=== PATIENT | female | born 1960 | race Caucasian/White ===

== ENCOUNTER 2016-07-21 20:08 | Inpatient (IN) | payer OTHER ==
[2016-07-21 20:58] VITALS: BMI 38.0
--- NOTE | 2016-07-21 21:25 | HP ---
COWS - Scale Resting Pulse: 0= VT 80 or Below Sweatin=Flushed/Facial Moisture Restless Observation: 5= Unable to Sit Still Pupil Size: 1= Pupils >than Normal Bone or Joint Aches: 4=Acute Joint/Muscle Pain Runny Nose/ Eye Tearin= Runny Nose/Eyes GI Upset > 30mins: 0= None Tremor Observation: 2= Slight Tremor Visible Yawning Observation: 1= 1-2x During Session Anxiety or Irritability: 2=Irritable/Anxious Goose Flesh Skin: 0=Smooth Skin COWS Score: 19 Admission ROS S - HPI Chief Complaint: C/O WITHDRAWALS SX'S. SEEKING DETOX TXMENT. Allergies/Adverse Reactions: Allergies Allergy/AdvReac Type Severity Reaction Status Date / Time No Known Allergies Allergy Verified 07/21/16 20:58 History of Present Illness: 56 Y.O. MALE WITH OPIOID DEPENDENCE HERE ADMITTED FOR DETOX TXMENT. THIS IS CLIENTS FIRST TIME IN DETOX. WAS SEEN IN [facility] ED TODAY FOR SOB AND DIFFICULTY BREATHING. S/P CXR AND FLU SWAP DC WITH DX OF RSV BRONCHITIS AND SUPPORTIVE CARE. DC PAPERS REVIEWED. CLIENT STATES FEEL BETTER C/O CONGESTION. Exam Limitations: No Limitations - Ebola screening Have you traveled outside of the country in the last 21 days: No Have you had contact with anyone from an Ebola affected area: No Have you been sick,other than usual withdrawal symptoms: No Do you have a fever: No - Review of Systems Constitutional: Chills, Diaphoresis, Loss of Appetite, Malaise, Night Sweats EENT: reports: Nose Congestion Respiratory: reports: Cough, Shortness of Breath Cardiac: reports: No Symptoms Reported GI: reports: Poor Appetite : reports: No Symptoms Reported Musculoskeletal: reports: Joint Pain (TENDONITIS OF BOTH HANDS R>L) Integumentary: reports: No Symptoms Reported Neuro: reports: No Symptoms reported Endocrine: reports: No Symptoms Reported Hematology: reports: No Symptoms Reported Psychiatric: reports: Anxious Other Systems: Reviewed and Negative Patient History - Patient Medical History Hx Anemia: No Hx Asthma: No Hx Chronic Obstructive Pulmonary Disease (COPD): No Hx Cancer: No Hx Cardiac Disorders: No Hx Congestive Heart Failure: No Hx Hypertension: No Hx Hypercholesterolemia: No Hx Pacemaker: No HX Cerebrovascular Accident: No Hx Seizures: No Hx Dementia: No Hx Diabetes: No Hx Gastrointestinal Disorders: No Hx Liver Disease: No Hx Genitourinary Disorders: No Hx Sexually Transmitted Disorders: No Hx Renal Disease (ESRD): No Hx Thyroid Disease: Yes (HYPOTHYROIDISM) Hx Human Immunodeficiency Virus (HIV): No Hx Hepatitis C: No Hx Depression: No Hx Suicide Attempt: No Hx Bipolar Disorder: No Hx Schizophrenia: No - Patient Surgical History Past Surgical History: Yes Hx Neurologic Surgery: No Hx Cataract Extraction: No Hx Cardiac Surgery: No Hx Lung Surgery: No Hx Breast Surgery: No Hx Breast Biopsy: No Hx Abdominal Surgery: No Hx Appendectomy: No Hx Cholecystectomy: No Hx Genitourinary Surgery: No Hx Section: No Hx Orthopedic Surgery: No Other Surgical History: thyroidectomy Anesthesia Reaction: No - PPD History Previous Implant?: Yes Documented Results: Negative w/o proof Implanted On Prior R Admission?: No PPD to be Administered?: Yes - Reproductive History Patient : No - Smoking Cessation Smoking history: Current every day smoker Have you smoked in the past 12 months: Yes Aproximately how many cigarettes per day: 20 Cigars Per Day: 0 Hx Chewing Tobacco Use: No Initiated information on smoking cessation: Yes 'Breaking Loose' booklet given: 07/21/16 - Substance & Tx. History Hx Alcohol Use: No Hx Substance Use: Yes Substance Use Type: Opiates (OPANA) Hx Substance Use Treatment: No - Substances Abused OPANA Route: Oral Frequency: Daily Amount used: 30mg Age of first use: 54 Date of Last Use: 07/21/16 Family Disease History - Family Disease History Family Disease History: Heart Disease: Father (CHF), CA: Mother (LUNG CA), Other : Father, Mother, Brother (DRUG/ ALCOHOL ABUSE) Admission Physical Exam S - Vital Signs Vital Signs: Vital Signs - 24 hr 07/21/16 20:54 Temperature 96.6 F L Pulse Rate 69 Respiratory 22 Rate Blood Pressure 121/70 - Physical General Appearance: Yes: Appropriately Dressed, Tremorous, Sweating, Anxious HEENTM: Yes: EOMI, Normocephalic, Normal Voice, ANANT, Pharynx Normal, Nasal Congestion Respiratory: Yes: Chest Non-Tender, No Respiratory Distress, Wheezing, Other ( COARSE BREATRH SOUNDS) Neck: Yes: No masses,lesions,Nodules, Supple, Trachea in good position Breast: Yes: Breast Exam Deferred Cardiology: Yes: Regular Rhythm, Regular Rate, S1, S2 Abdominal: Yes: Non Tender, Soft, Other (OBESE) Genitourinary: Yes: Within Normal Limits Back: Yes: Normal Inspection Musculoskeletal: Yes: full range of Motion, Gait Steady Extremities: Yes: Normal Range of Motion, Non-Tender, Tremors Neurological: Yes: manager rehab II-XII NML intact, Fully Oriented, Alert, Motor Strength 5/5 Integumentary: Yes: Normal Color, Warm, Moist Lymphatic: Yes: Within Normal Limits - Diagnostic (1) Uncomplicated opioid dependence Current Visit: Yes Status: Chronic (2) Nicotine dependence Current Visit: Yes Status: Chronic Qualifiers: Nicotine product type: cigarettes Substance use status: uncomplicated Qualified Code(s): F17.210 - Nicotine dependence, cigarettes, uncomplicated (3) Hypothyroidism Current Visit: Yes Status: Chronic (4) Bronchitis Current Visit: Yes Status: Acute Cleared for Admission [facility] - Detox or Rehab [facility] Level of Care: Medically Managed Detox Regimen/Protocol: Methadone [facility] Breath Alcohol Content Breath Alcohol Content: 0 Urine Pregancy Test - Result Urine Test Results: Negative- NO Line Present Urine Drug Screen - Results Drug Screen Negative: No Urine Drug Screen Results: AMP-Amphetamines, MTD-Methadone, TCA-Tricyclic Antidepress, OXY-Oxycodone
[2016-07-21] MEDS ORDERED: hydrOXYzine PAMOATE 50 MG CAPSULE (FP) PO PRN (21:37)
[2016-07-21] MEDS ORDERED: METHADONE HCL 10 MG TABLET (FOR DETOX USE ONLY) PO ONE ×2 (21:37→23:00)
[2016-07-21] MEDS ORDERED: MAGNESIUM CITRATE 300 ML BOTTLE PO PRN (21:37)
[2016-07-21] MEDS ORDERED: MENTHOL/PHENOL 1 EACH UD MM PRN (21:37)
[2016-07-21] MEDS ORDERED: LOPERAMIDE HCL 2 MG CAPSULE PO PRN (21:37)
[2016-07-21] MEDS ORDERED: MAG HYDROX/AL HYDROX/SIMETH 30 ML UNIT-DOSE CUP PO PRN (21:37)
[2016-07-21] MEDS ORDERED: diphenhydrAMINE HCL 50 MG CAPSULE PO PRN (21:37)
[2016-07-21] MEDS ORDERED: MAGNESIUM HYDROX 2400MG/30ML ORAL SUSPENSION 30 ML CUP PO PRN (21:37)
[2016-07-21] MEDS ORDERED: ACETAMINOPHEN 325 MG TABLET (FP) PO PRN (21:37)
[2016-07-21 22:54] LABS: URINE APPEARANCE CLEAR; URINE BILIRUBIN NEGATIVE (NEGATIVE); URINE BLOOD NEGATIVE (NEGATIVE); URINE COLOR YELLOW; URINE GLUCOSE (UA) NEGATIVE (NEGATIVE); URINE KETONE NEGATIVE (NEGATIVE); URINE LEUK ESTERASE NEGATIVE (NEGATIVE); URINE NITRITE NEGATIVE (NEGATIVE); URINE UROBILINOGEN NEGATIVE E.U./dl (0.2-1.0)
[2016-07-21 22:57] LABS: URINE PROTEIN 2+ (NEGATIVE)
[2016-07-21 22:58] LABS: URINE RBC 3 /hpf (0-3); URINE WBC 2 /hpf (3-5)
[2016-07-21 22:59] LABS: URINE HYALINE CAST 16 /lpf; URINE MUCUS MANY
[2016-07-21] MEDS: diazePAM 5 MG TABLET PO PRN (23:00)
[2016-07-21] MEDS: NICOTINE 21 MG/24 HOURS TOPICAL PATCH TD SCH (23:01)
[2016-07-21] MEDS: THIAMINE HCL 100 MG TABLET (FP) PO SCH (23:25)
[2016-07-22] MEDS ORDERED: LEVOTHYROXINE NA 125 MCG TABLET (FP) PO SCH (07:00)
[2016-07-22] MEDS ORDERED: METHADONE HCL 10 MG TABLET (FOR DETOX USE ONLY) PO ONE (10:00)
[2016-07-22] MEDS: PRENATAL VITAMINS W/ FOLIC ACID TABLET (FP) PO SCH (10:14)
[2016-07-22] MEDS: diazePAM 5 MG TABLET PO PRN ×2 (10:15→22:21)
[2016-07-22 10:16] LABS: MCH 30.5 pg (25.7-33.7); MCHC 33.8 g/dl (32.0-36.0); MEAN CELL VOLUME 90.2 fl (80-96); MEAN PLT VOLUME 8.2 fl (7.5-11.1); PLATELET COUNT 189 K/MM3 (134-434); RDW 13.8 % (11.6-15.6); WHITE BLOOD COUNT 5.5 K/mm3 (4.0-10.0)
[2016-07-22] MEDS: NICOTINE POLACRILEX 2 MG GUM BC PRN ×3 (10:17→22:33)
[2016-07-22 10:33] LABS: ALBUMIN 3.5 g/dl (3.4-5.0); ALK PHOS 68 U/L (45-117); ANION GAP 10 (8-16); BILIRUBIN,TOTAL 0.3 mg/dL (0.2-1.0); CALCIUM 8.1 mg/dL (8.5-10.1); CO2 25 mmol/L (21-32); CREATININE 0.8 mg/dL (0.55-1.02); GLUCOSE,RANDOM 98 mg/dL (74-106); SGOT/AST 22 U/L (15-37); SGPT/ALT 34 U/L (12-78); TOT PROT 7.2 g/dl (6.4-8.2)
[2016-07-22] MEDS: NICOTINE 21 MG/24 HOURS TOPICAL PATCH TD SCH (11:06)
--- NOTE | 2016-07-22 12:17 | PN ---
BHS COWS - Scale Resting Pulse: 1= CT 81-100 Sweatin=Flushed/Facial Moisture Restless Observation: 1= Difficult to Sit Still Pupil Size: 0= Normal to Room Light Bone or Joint Aches: 2= Severe Diffuse Aches Runny Nose/ Eye Tearin= Runny Nose/Eyes GI Upset > 30mins: 1= Stomach Cramp Tremor Observation of Outstretched Hands: 2= Slight Tremor Visible Yawning Observation: 0= None Anxiety or Irritability: 2=Irritable/Anxious Goose Flesh Skin: 3=Piloerection COWS Score: 16 BHS Progress Note (SOAP) Subjective: Chills, Tremors, Body Aches, Headache, Productive cough, Nasal Congestion. Objective: PT. A & O X 3, OBSERVED AMBULATING ON UNIT. COARSE LUNG SOUND AUSCULTATED ON RIGHT LOWER LOBE. 07/22/16 12:13 Vital Signs Temperature 100.6 F H 07/22/16 09:51 Pulse Rate 94 H 07/22/16 09:51 Respiratory Rate 20 07/22/16 09:51 Blood Pressure 139/96 07/22/16 09:51 O2 Sat by Pulse Oximetry (%) Laboratory Last Values WBC 5.5 K/mm3 (4.0-10.0) 07/22/16 07:00 RBC 4.77 M/mm3 (3.60-5.2) 07/22/16 07:00 Hgb 14.5 GM/dL (10.7-15.3) 07/22/16 07:00 Hct 43.0 % (32.4-45.2) 07/22/16 07:00 MCV 90.2 fl (80-96) 07/22/16 07:00 MCHC 33.8 g/dl (32.0-36.0) 07/22/16 07:00 RDW 13.8 % (11.6-15.6) 07/22/16 07:00 Plt Count 189 K/MM3 (134-434) 07/22/16 07:00 MPV 8.2 fl (7.5-11.1) 07/22/16 07:00 Sodium 136 mmol/L (136-145) 07/22/16 07:00 Potassium 4.0 mmol/L (3.5-5.1) 07/22/16 07:00 Chloride 101 mmol/L (98-107) 07/22/16 07:00 Carbon Dioxide 25 mmol/L (21-32) 07/22/16 07:00 Anion Gap 10 (8-16) 07/22/16 07:00 BUN 18 mg/dL (7-18) 07/22/16 07:00 Creatinine 0.8 mg/dL (0.55-1.02) 07/22/16 07:00 Creat Clearance w eGFR > 60 (>60) 07/22/16 07:00 Random Glucose 98 mg/dL (74-106) 07/22/16 07:00 Calcium 8.1 mg/dL (8.5-10.1) L 07/22/16 07:00 Total Bilirubin 0.3 mg/dL (0.2-1.0) 07/22/16 07:00 AST 22 U/L (15-37) 07/22/16 07:00 ALT 34 U/L (12-78) 07/22/16 07:00 Alkaline Phosphatase 68 U/L (45-117) 07/22/16 07:00 Total Protein 7.2 g/dl (6.4-8.2) 07/22/16 07:00 Albumin 3.5 g/dl (3.4-5.0) 07/22/16 07:00 Urine Color Yellow 07/21/16 22:35 Urine Appearance Clear 07/21/16 22:35 Urine pH 5.0 (5.0-8.0) 07/21/16 22:35 Ur Specific [place] 1.023 (1.001-1.035) 07/21/16 22:35 Urine Protein 2+ (NEGATIVE) H 07/21/16 22:35 Urine Glucose (UA) Negative (NEGATIVE) 07/21/16 22:35 Urine Ketones Negative (NEGATIVE) 07/21/16 22:35 Urine Blood Negative (NEGATIVE) 07/21/16 22:35 Urine Nitrite Negative (NEGATIVE) 07/21/16 22:35 Urine Bilirubin Negative (NEGATIVE) 07/21/16 22:35 Urine Urobilinogen Negative E.U./dl (0.2-1.0) 07/21/16 22:35 Ur Leukocyte Esterase Negative (NEGATIVE) 07/21/16 22:35 Urine RBC 3 /hpf (0-3) 07/21/16 22:35 Urine WBC 2 /hpf (3-5) 07/21/16 22:35 Ur Epithelial Cells Rare /hpf (FEW) 07/21/16 22:35 Urine Crystals Rare /hpf (NONE SEEN) 07/21/16 22:35 Urine Casts 2 /hpf 07/21/16 22:35 Hyaline Casts 16 /lpf 07/21/16 22:35 Urine Mucus Many 07/21/16 22:35 RPR Titer Nonreactive (NONREACTIVE) 07/22/16 07:00 LABS NOTED. Assessment: 07/22/16 12:15 WITHDRAWAL SYMPTOMS. Plan: CONTINUE DETOX. PRN NEBULIZER TREATMENT FOR DOUGH / SOB PRN ACTIFED FOR NASAL CONGESTION. CONTINUE TO MONITOR COUGH AND VS.
[2016-07-22] MEDS: ALBUTEROL SO4 2.5/IPRATROPIUM 0.5 INH SOL 3 ML VIAL.NEB. NEB PRN ×2 (12:49→17:00)
[2016-07-22] MEDS: P-EPHED 60MG/TRIPROLIDI 2.5MG TABLET PO PRN (15:30)
[2016-07-22] MEDS: IBUPROFEN 400 MG TABLET (FP) PO PRN ×2 (15:30→22:21)
[2016-07-22] MEDS: guaiFENesin/D-METHORPHAN HB 10 ML UNIT-DOSE CUPS PO PRN (15:30)
--- NOTE | 2016-07-22 15:39 | EKG ---
Test Reason : Blood Pressure : / mmHG Vent. Rate : 065 BPM Atrial Rate : 065 BPM P-R Int : 152 ms QRS Dur : 096 ms QT Int : 428 ms P-R-T Axes : 058 014 083 degrees QTc Int : 445 ms NORMAL SINUS RHYTHM T WAVE ABNORMALITY, CONSIDER LATERAL ISCHEMIA ABNORMAL ECG NO PREVIOUS ECGS AVAILABLE Confirmed by JODI JOHNSON MD ([id number]) on 07/22/2016 3:39:07 PM Referred By: Confirmed By:JODI JOHNSON MD
--- NOTE | 2016-07-22 17:06 | PN ---
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 Pt seen at [facility]/Ed dx'ed with bronchitis but given no AB'S. Vital Signs Temperature 102.7 F H 07/22/16 15:45 Pulse Rate 84 07/22/16 15:45 Respiratory Rate 20 07/22/16 15:45 Blood Pressure 158/73 07/22/16 15:45 O2 Sat by Pulse Oximetry (%) 93% RA 07/22/16 16:45 f pt aox3 sitting up in bed with cough lungs + mild wheezes isma imp- bronchitis r/o PN plan - fluids tylenol duoneb prn bactrim ds 1 bid cxr in am repeat cbc monitor temp if increasing fever or sob inform medical provider
[2016-07-22] MEDS ORDERED: SULFAMETHOXAZOLE/TRIMETHOPRIM 800MG/160MG D.S. TABLET PO ONE (17:15)
[2016-07-22] MEDS: ALBUTEROL SO4 6.7 GM HFA INHALER IH PRN (22:20)
[2016-07-22] MEDS: THIAMINE HCL 100 MG TABLET (FP) PO SCH (22:22)
[2016-07-23] MEDS ORDERED: LEVOTHYROXINE NA 25 MCG TABLET (FP) PO SCH (05:24)
[2016-07-23] MEDS ORDERED: METHADONE HCL 5 MG TABLET (FOR DETOX USE ONLY) PO ONE (10:00)
[2016-07-23] MEDS ORDERED: SULFAMETHOXAZOLE/TRIMETHOPRIM 800MG/160MG D.S. TABLET PO SCH (10:00)
[2016-07-23 10:08] LABS: BASOPHIL 0.4 % (0-2.0); EOSINOPHIL 1.3 % (0-4.5); MCH 30.5 pg (25.7-33.7); MCHC 33.6 g/dl (32.0-36.0); MEAN CELL VOLUME 90.8 fl (80-96); MEAN PLT VOLUME 8.1 fl (7.5-11.1); NEUTROPHILS 68.6 % (42.8-82.8); PLATELET COUNT 177 K/MM3 (134-434); WHITE BLOOD COUNT 5.3 K/mm3 (4.0-10.0)
[2016-07-23] MEDS: PRENATAL VITAMINS W/ FOLIC ACID TABLET (FP) PO SCH (10:17)
[2016-07-23] MEDS: NICOTINE 21 MG/24 HOURS TOPICAL PATCH TD SCH (10:18)
--- NOTE | 2016-07-23 10:43 | PN ---
S COWS - Scale Resting Pulse: 0= [place] 80 or Below Sweatin=Flushed/Facial Moisture Restless Observation: 1= Difficult to Sit Still Pupil Size: 0= Normal to Room Light Bone or Joint Aches: 2= Severe Diffuse Aches Runny Nose/ Eye Tearin= Runny Nose/Eyes GI Upset > 30mins: 0= None Tremor Observation of Outstretched Hands: 2= Slight Tremor Visible Yawning Observation: 1= 1-2x During Session Anxiety or Irritability: 2=Irritable/Anxious Goose Flesh Skin: 0=Smooth Skin COWS Score: 12 S Progress Note (SOAP) Subjective: agitation sweats productive cough Objective: 07/23/16 10:40 Vital Signs Temperature 101.7 F H 07/23/16 10:12 Pulse Rate 80 07/23/16 10:12 Respiratory Rate 20 07/23/16 10:12 Blood Pressure 150/70 07/23/16 10:12 O2 Sat by Pulse Oximetry (%) Laboratory Tests 07/21/16 07/21/16 07/22/16 07:00 22:35 07:00 WBC 5.5 RBC 4.77 Hgb 14.5 Hct 43.0 MCV 90.2 MCHC 33.8 RDW 13.8 Plt Count 189 MPV 8.2 Neutrophils % Lymphocytes % Monocytes % Eosinophils % Basophils % Sodium Potassium Chloride Carbon Dioxide Anion Gap BUN Creatinine Creat Clearance w eGFR Random Glucose Calcium Total Bilirubin AST ALT Alkaline Phosphatase Total Protein Albumin Urine Color Yellow Urine Appearance Clear Urine pH 5.0 Ur Specific [place] 1.023 Urine Protein 2+ H Urine Glucose (UA) Negative Urine Ketones Negative Urine Blood Negative Urine Nitrite Negative Urine Bilirubin Negative Urine Urobilinogen Negative Ur Leukocyte Esterase Negative Urine RBC 3 Urine WBC 2 Ur Epithelial Cells Rare Urine Crystals Rare Urine Casts 2 Hyaline Casts 16 Urine Mucus Many RPR Titer Hepatitis C Antibody 0.1 07/22/16 07/22/16 07/23/16 07:00 07:00 07:30 WBC 5.3 RBC 4.61 Hgb 14.0 Hct 41.8 MCV 90.8 MCHC 33.6 RDW 14.0 Plt Count 177 MPV 8.1 Neutrophils % 68.6 Lymphocytes % 16.4 Monocytes % 13.3 H Eosinophils % 1.3 Basophils % 0.4 Sodium 136 Potassium 4.0 Chloride 101 Carbon Dioxide 25 Anion Gap 10 BUN 18 Creatinine 0.8 Creat Clearance w eGFR > 60 Random Glucose 98 Calcium 8.1 L Total Bilirubin 0.3 AST 22 ALT 34 Alkaline Phosphatase 68 Total Protein 7.2 Albumin 3.5 Urine Color Urine Appearance Urine pH Ur Specific [place] Urine Protein Urine Glucose (UA) Urine Ketones Urine Blood Urine Nitrite Urine Bilirubin Urine Urobilinogen Ur Leukocyte Esterase Urine RBC Urine WBC Ur Epithelial Cells Urine Crystals Urine Casts Hyaline Casts Urine Mucus RPR Titer Nonreactive Hepatitis C Antibody temp 101.7; continue antibiotic as ordered chest x-ray result pending awake/alert ambulating no acute distress Assessment: 07/23/16 10:41 withdrawal sx Plan: continue detox increase fluids chest x-ray result pending will send to [facility] if necessary continue bactrim as ordered
[2016-07-23] MEDS: ALBUTEROL SO4 2.5/IPRATROPIUM 0.5 INH SOL 3 ML VIAL.NEB. NEB PRN (11:36)
[2016-07-23] MEDS: guaiFENesin/D-METHORPHAN HB 10 ML UNIT-DOSE CUPS PO PRN (13:20)
[2016-07-23] MEDS: P-EPHED 60MG/TRIPROLIDI 2.5MG TABLET PO PRN (13:20)
[2016-07-23] MEDS: ALBUTEROL SO4 6.7 GM HFA INHALER IH PRN (13:21)
--- NOTE | 2016-07-23 14:03 | PN ---
S Progress Note Note: pt last BP 125/70 pulse 88 rr 16, temp earlier today 101.7 and now 99.9. pt continues to feel congestion, neb tx and bactrim chest x-ray states degenerative changes with wedges and need follow up. spoke with REBECCA Zapien for report to have pt evaluated.
[2016-07-23 15:26] VITALS: BP 125/71; PULSE 88; TEMP 99.9
--- NOTE | 2016-07-24 00:06 | DS ---
[facility] Detox Discharge Summary Admission Date: 07/21/16 Discharge Date: 07/23/16 - History Present History: Opioid Dependence Additional Comments: PT. WAS TRANSFERRED TO THE ER AT [facility] TO R/O PNEUMONIA. PT. LEFT ER AMA. - Physical Exam Results Vital Signs: Vital Signs Temperature 99.9 F H 07/23/16 15:25 Pulse Rate 88 07/23/16 15:25 Respiratory Rate 16 07/23/16 15:25 Blood Pressure 125/71 07/23/16 15:25 O2 Sat by Pulse Oximetry (%) - Medication Discharge Medications: Ambulatory Orders Levothyroxine [Synthroid -] 125 mcg PO DAILY 07/21/16 Albuterol 0.083% Nebulizer Mone [Ventolin 0.083% Nebulizer Soln -] 1 neb NEB Q4H PRN #20 vial 07/23/16 Albuterol Sulfate Inhaler - [Ventolin HFA Inhaler -] 1 - 2 inh PO Q4H PRN #1 inhaler 07/23/16 Azithromycin 250 mg PO DAILY #4 tablet 07/23/16 Prednisone [Deltasone] 60 mg PO DAILY #12 tablet 07/23/16 - AMA Did Patient Leave Against Medical Advice: Yes
[2016-07-24] MEDS ORDERED: METHADONE HCL 5 MG TABLET (FOR DETOX USE ONLY) PO ONE (10:00)
[2016-07-25] MEDS ORDERED: METHADONE HCL 10 MG TABLET (FOR DETOX USE ONLY) PO ONE (10:00)
[2016-07-26] MEDS ORDERED: METHADONE HCL 5 MG TABLET (FOR DETOX USE ONLY) PO ONE (06:00)
== END 2016-07-23 14:56 | disposition left against medical advice (07) | DRG 770 ==
LOC: YASAS 20:08 → Y6N 21:18
PROVIDERS: ADMIT Internal Medicine Addiction Medicine; ATTEND Internal Medicine Addiction Medicine
PROC: HZ2ZZZZ Detoxification Services for Substance Abuse Treatment (ICD-10-PCS; principal; 2016-07-23)
DX: F11.23 Opioid dependence with withdrawal (principal); F17.210 Nicotine dependence, cigarettes, uncomplicated; E03.9 Hypothyroidism, unspecified; J40 Bronchitis, not specified as acute or chronic
CPT/HCPCS: 36415; 71020-TC; 80053; 81003; 81015; 85025; 85027; 86593; 93005; 93010; 94640

== ENCOUNTER 2016-07-23 14:55 | Emergency (ER) | payer OTHER ==
[2016-07-23] MEDS ORDERED: ACETAMINOPHEN 325 MG TABLET (FP) PO ONE (15:17)
[2016-07-23] MEDS ORDERED: SODIUM CHLORIDE 1,000 ML IV STA (15:17)
[2016-07-23] MEDS ORDERED: methylPREDNISolone NA SUCC 125 MG/2 ML VIAL IVPB ONE (15:17)
[2016-07-23] MEDS ORDERED: ACETAMINOPHEN 325 MG TABLET (FP) ONE (15:17)
--- NOTE | 2016-07-23 15:17 | PDOC ---
History of Present Illness - General History Source: Patient Exam Limitations: No Limitations - History of Present Illness Initial Comments: 07/23/16 15:31 The patient is a 56 year old female, with a significant past medical history of hypothyroidism, bronchitis, opioid dependence, and nicotine dependence, who presents to the emergency department complaining of severe shortness of breath and wheezing for approximately 4 days. The patient reports she presented to [facility] approximately 4 days ago with increased SOB, congestion, and fever. She reports a flu swab which was negative. At the time she reports she stopped taking oxycodone, so that she could be sent to [facility] for detox. The patient reports she was given 3 nebulizer treatments over the course of the past 2 days while at [facility], with no relief. She states she has been fighting to breath, since her symptoms began. The patient denies any associated chest pain, diaphoresis, or palpitations. The patient's Tmax in the ED is 102.3F. The patient denies any chills, headache, or dizziness. The patient denies any nausea , vomiting, diarrhea, constipation, or changes in urination patterns. The patient denies any recent travel or sick contacts Allergies: None reported. Past Surgical History: None reported. Social History: Current everyday smoker. Reports opiate dependence. Denies alcohol use. PCP: Dr. Pan <Cinthia Blanco - Last Filed: 07/23/16 16:27> <Sharla Farias - Last Filed: 07/24/16 09:00> - General Chief Complaint: SIRS, Suspected/Possible Stated Complaint: FERVER,WHEEZING Time Seen by Provider: 07/23/16 15:03 Past History <Cinthia Blanco - Last Filed: 07/23/16 16:27> - Past Medical History Anemia: No Asthma: No Cancer: No Cardiac Disorders: No CVA: No COPD: No CHF: No Dementia: No Diabetes: No GI Disorders: No Disorders: No HTN: No Hypercholesterolemia: No Kidney Stones: No Liver Disease: No Suicide Attempt (Hx): No Seizures: No Thyroid Disease: Yes (HYPOTHYROIDISM) - Surgical History Abdominal Surgery: No Appendectomy: No Cardiac Surgery: No Cholecystectomy: No Lung Surgery: No Neurologic Surgery: No Orthopedic Surgery: No - Psycho/Social/Smoking Cessation Hx Anxiety: No Suicidal Ideation: No Smoking History: Never smoked Have you smoked in the past 12 months: Yes Number of Cigarettes Smoked Daily: 20 Cigars Per Day: 0 Information on smoking cessation initiated: No 'Breaking Loose' booklet given: 07/21/16 Hx Alcohol Use: No Drug/Substance Use Hx: Yes Substance Use Type: Opiates Hx Substance Use Treatment: No <Sharla Farias - Last Filed: 07/24/16 09:00> - Past Medical History Allergies/Adverse Reactions: Allergies Allergy/AdvReac Type Severity Reaction Status Date / Time No Known Allergies Allergy Verified 07/23/16 15:06 Home Medications: Ambulatory Orders Levothyroxine [Synthroid -] 125 mcg PO DAILY 07/21/16 Albuterol 0.083% Nebulizer Mone [Ventolin 0.083% Nebulizer Soln -] 1 neb NEB Q4H PRN #20 vial 07/23/16 Albuterol Sulfate Inhaler - [Ventolin HFA Inhaler -] 1 - 2 inh PO Q4H PRN #1 inhaler 07/23/16 Azithromycin 250 mg PO DAILY #4 tablet 07/23/16 Prednisone [Deltasone] 60 mg PO DAILY #12 tablet 07/23/16 Review of Systems - Review of Systems Able to Perform ROS?: Yes Comments:: 07/23/16 15:32 GENERAL/CONSTITUTIONAL: +Fever. No chills. No weakness. HEAD, EYES, EARS, NOSE AND THROAT: +Congestion.No change in vision. No ear pain or discharge. No sore throat. CARDIOVASCULAR: +Shortness of breath. No chest pain RESPIRATORY: +Wheezing. No cough or hemoptysis. GASTROINTESTINAL: No nausea, vomiting, diarrhea or constipation. GENITOURINARY: No dysuria, frequency, or change in urination. MUSCULOSKELETAL: No joint or muscle swelling or pain. No neck or back pain. SKIN: No rash NEUROLOGIC: No headache, vertigo, loss of consciousness, or change in strength/ sensation. ENDOCRINE: No increased thirst. No abnormal weight change. HEMATOLOGIC/LYMPHATIC: No anemia, easy bleeding, or history of blood clots. ALLERGIC/IMMUNOLOGIC: No hives or skin allergy. <Cinthia Blanco - Last Filed: 07/23/16 16:27> *Physical Exam - Vital Signs Last Vital Signs Temp Pulse Resp BP Pulse Ox 102.3 F H 99 H 20 167/90 97 07/23/16 15:06 07/23/16 15:06 07/23/16 15:06 07/23/16 15:06 07/23/16 15:06 - Physical Exam Comments: 07/23/16 15:33 GENERAL: Awake, alert, and fully oriented, in no acute distress HEAD: No signs of trauma EYES: PERRLA, EOMI, sclera anicteric, conjunctiva clear ENT: Auricles normal inspection, hearing grossly normal, nares patent, oropharynx clear without exudates. Moist mucosa NECK: Normal ROM, supple, no lymphadenopathy, JVD, or masses LUNGS: Diffuse expiratory wheezing. Increased expiratory phase. o rales, rhonchi, or crackles HEART: Regular rate and rhythm, normal S1 and S2, no murmurs, rubs or gallops ABDOMEN: Soft, nontender, normoactive bowel sounds. No guarding, no rebound. No masses EXTREMITIES: Normal range of motion, no edema. No clubbing or cyanosis. No cords, erythema, or tenderness NEUROLOGICAL: Cranial nerves II through XII grossly intact. Normal speech, normal gait SKIN: Warm, Dry, normal turgor, no rashes or lesions noted. <Cinthia Blanco - Last Filed: 07/23/16 16:27> - Vital Signs Last Vital Signs Temp Pulse Resp BP Pulse Ox 102.3 F H 99 H 20 167/90 97 07/23/16 15:06 07/23/16 15:06 07/23/16 15:06 07/23/16 15:06 07/23/16 15:06 <Sharla Farias - Last Filed: 07/24/16 09:00> ED Treatment Course - LABORATORY CBC & Chemistry Diagram: 07/23/16 15:30 07/23/16 15:30 - RADIOLOGY Radiograph Interpretation: 07/23/16 16:23 EXAM: CXR INTERPRETED BY: Dr. Taylor REVIEWED BY: Dr. Farias IMPRESSION: Since 07/23/2016, there is little change. Again noted are prominent central markings with large heart, degenerative changes but no sign of an acute process. There are degenerative changes in the spine. The soft tissues are intact. The angles are sharp. - Medications Given in the ED: ED Medications Discontinued Medications Generic Name Dose Route Start Last Admin Trade Name Freq PRN Reason Stop Dose Admin Acetaminophen 975 mg 07/23/16 15:17 07/23/16 15:30 Tylenol - PO 07/23/16 15:18 975 mg ONCE ONE Administration <Cinthia Blanco - Last Filed: 07/23/16 16:27> - LABORATORY CBC & Chemistry Diagram: 07/23/16 15:30 07/23/16 15:30 <Sharla Farias - Last Filed: 07/24/16 09:00> Medical Decision Making - Medical Decision Making 07/23/16 16:[address] Echols. CXR with no infiltrates. She is receiving nebs and steroids. Will add azithromycin for poss bronchitis, in light of heavy smoking history. Awaiting flu swab and reassessment. She has been ambulating in the ED, so she may be stable for DC after finishing treatments. <Sharla Farias - Last Filed: 07/24/16 09:00> *DC/Admit/Observation/Transfer - Attestations Scribe Attestion: 07/23/16 15:34 Documentation prepared by Cinthia Blanco, acting as clinical medical assistant for Sharla Farias MD. <Cinthia Blanco - Last Filed: 07/23/16 16:27> <Sharla Farias - Last Filed: 07/24/16 09:00> Diagnosis at time of Disposition: Bronchitis, Wheezing - Discharge Dispostion Disposition: HOME Condition at time of disposition: Improved - Prescriptions Prescriptions: Azithromycin 250 mg PO DAILY #4 tablet Prednisone [Deltasone] 60 mg PO DAILY #12 tablet Albuterol 0.083% Nebulizer Mone [Ventolin 0.083% Nebulizer Soln -] 1 neb NEB Q4H PRN #20 vial PRN Reason: Wheezing Albuterol Sulfate Inhaler - [Ventolin HFA Inhaler -] 1 - 2 inh PO Q4H PRN #1 inhaler PRN Reason: Wheezing - Referrals Referrals: Andrew Pan MD [Primary Care Provider] - - Patient Instructions Printed Discharge Instructions: DI for Acute Bronchitis Additional Instructions: Please use 2 puffs of albuterol every 4 hours as needed for wheezing. Take the prednisone daily for the next 4 days. Please take the azithromycin daily for the next 4 days. Please follow up with your doctor.
[2016-07-23 15:34] LABS: BASOPHIL 0.4 % (0-2.0); EOSINOPHIL 0.6 % (0-4.5); MCH 30.4 pg (25.7-33.7); MCHC 33.9 g/dl (32.0-36.0); MEAN CELL VOLUME 89.8 fl (80-96); NEUTROPHILS 62.7 % (42.8-82.8); PLATELET COUNT 198 K/MM3 (134-434); RDW 13.7 % (11.6-15.6); WHITE BLOOD COUNT 5.9 K/mm3 (4.0-10.0)
[2016-07-23] MEDS ORDERED: methylPREDNISolone NA SUCC 125 MG/2 ML VIAL ONE (15:34)
[2016-07-23] MEDS ORDERED: ALBUTEROL SO4 2.5/IPRATROPIUM 0.5 INH SOL 3 ML VIAL.NEB. NEB ONE ×3 (15:39→16:42)
[2016-07-23 15:47] VITALS: TEMP 102.3; BMI 40.2
[2016-07-23 16:05] LABS: ALBUMIN 3.6 g/dl (3.4-5.0); BILIRUBIN,TOTAL 0.1 mg/dL (0.2-1.0); CALCIUM 8.6 mg/dL (8.5-10.1); TOT PROT 7.4 g/dl (6.4-8.2)
[2016-07-23] MEDS ORDERED: AZITHROMYCIN IVPB 500 MG in DEXTROSE 5%-WATER - 250 ML IVPB ONE (16:27)
[2016-07-23] MEDS: ALBUTEROL SO4 2.5/IPRATROPIUM 0.5 INH SOL 3 ML VIAL.NEB. NEB SCH ×2 (16:38→16:49)
[2016-07-23] MEDS ORDERED: AZITHROMYCIN IVPB 250 ML IVPB ONE (16:41)
--- NOTE | 2016-07-23 17:29 | PDOC ---
*Physical Exam - Vital Signs Last Vital Signs Temp Pulse Resp BP Pulse Ox 102.3 F H 99 H 20 167/90 97 07/23/16 15:06 07/23/16 15:06 07/23/16 15:06 07/23/16 15:06 07/23/16 15:06 ED Treatment Course - LABORATORY CBC & Chemistry Diagram: 07/23/16 15:30 07/23/16 15:30 - ADDITIONAL ORDERS Additional order review: Laboratory Results 07/23/16 07/23/16 15:31 15:30 Sodium 137 Potassium 4.0 Chloride 102 Carbon Dioxide 27 Anion Gap 8 BUN 22 H D Creatinine 1.0 D Creat Clearance w eGFR 57.15 Random Glucose 90 Lactic Acid 1.055 Calcium 8.6 Total Bilirubin 0.1 L D AST 24 ALT 30 Alkaline Phosphatase 67 Total Protein 7.4 Albumin 3.6 07/23/16 15:30 RBC 4.73 MCV 89.8 MCHC 33.9 RDW 13.7 MPV 8.0 Neutrophils % 62.7 Lymphocytes % 22.3 D Monocytes % 14.0 H Eosinophils % 0.6 Basophils % 0.4 - Medications Given in the ED: ED Medications Discontinued Medications Generic Name Dose Route Start Last Admin Trade Name Freq PRN Reason Stop Dose Admin Acetaminophen 975 mg 07/23/16 15:17 07/23/16 15:30 Tylenol - PO 07/23/16 15:18 975 mg ONCE ONE Administration Albuterol/Ipratropium 1 amp 07/23/16 15:30 07/23/16 16:49 Duoneb - NEB 07/23/16 16:01 1 amp Q15M MARKO Administration Albuterol/Ipratropium 1 amp 07/23/16 15:39 07/23/16 15:39 Duoneb - NEB 07/23/16 15:40 1 amp NOW ONE Administration Sodium Chloride 1,000 mls @ 1,000 mls/hr 07/23/16 15:17 07/23/16 15:30 Normal Saline - IV 07/23/16 16:16 1,000 mls/hr ASDIR STA Administration Methylprednisolone Sodium Succinate 125 mg 07/23/16 15:17 07/23/16 15:39 Solu-Medrol - IVPB 07/23/16 15:18 125 mg ONCE ONE Administration Medical Decision Making - Medical Decision Making 07/23/16 17:22 Sign-out received from outgoing Emergency Physician Dr. Farias Pt interviewed and examined Ancillary studies reviewed Case discussed in detail with oncoming Emergency Physician including history, physical exam and ancillary studies. Vital Signs Temp Pulse Resp BP Pulse Ox 102.3 F H 99 H 20 167/90 97 07/23/16 15:06 07/23/16 15:06 07/23/16 15:06 07/23/16 15:06 07/23/16 15:06 Chest x-ray reviewed. Prominent central markings. CBC, BMP 07/23/16 15:30 07/23/16 15:30 CMP Sodium 137 mmol/L (136-145) 07/23/16 15:30 Potassium 4.0 mmol/L (3.5-5.1) 07/23/16 15:30 Chloride 102 mmol/L (98-107) 07/23/16 15:30 Carbon Dioxide 27 mmol/L (21-32) 07/23/16 15:30 Anion Gap 8 (8-16) 07/23/16 15:30 BUN 22 mg/dL (7-18) H D 07/23/16 15:30 Creatinine 1.0 mg/dL (0.55-1.02) D 07/23/16 15:30 Creat Clearance w eGFR 57.15 (>60) 07/23/16 15:30 Random Glucose 90 mg/dL (74-106) 07/23/16 15:30 Lactic Acid 1.055 mmol/L (0.4-2.0) 07/23/16 15:31 Calcium 8.6 mg/dL (8.5-10.1) 07/23/16 15:30 Total Bilirubin 0.1 mg/dL (0.2-1.0) L D 07/23/16 15:30 AST 24 U/L (15-37) 07/23/16 15:30 ALT 30 U/L (12-78) 07/23/16 15:30 Alkaline Phosphatase 67 U/L (45-117) 07/23/16 15:30 Total Protein 7.4 g/dl (6.4-8.2) 07/23/16 15:30 Albumin 3.6 g/dl (3.4-5.0) 07/23/16 15:30 The patient reports feeling significantly better after the nebulizers and steroids. Will treat as bronchitis. Azithromycin ordered. ECG reviewed. No evidence of prolonged QTC. I had discussed the results with the patient. The patient reports feeling significantly better and would like to go home. She does not want to go back to [address] [place] [address]. Will discharge her here from the ER. Return precautions given. I discussed the physical exam findings, ancillary test results and final diagnoses with the patient. I answered all of the patient's questions. The patient was satisfied with the care received and felt comfortable with the discharge plan and treatment plan. The patient will call their primary care physician within 24 hours to arrange follow-up and will return to the Emergency Department with any new, persistant or worsening symptoms. *DC/Admit/Observation/Transfer Diagnosis at time of Disposition: Bronchitis, Wheezing - Discharge Dispostion Disposition: HOME Condition at time of disposition: Improved Admit: No - Prescriptions Prescriptions: Azithromycin 250 mg PO DAILY #4 tablet Prednisone [Deltasone] 60 mg PO DAILY #12 tablet Albuterol 0.083% Nebulizer Mone [Ventolin 0.083% Nebulizer Soln -] 1 neb NEB Q4H PRN #20 vial PRN Reason: Wheezing Albuterol Sulfate Inhaler - [Ventolin HFA Inhaler -] 1 - 2 inh PO Q4H PRN #1 inhaler PRN Reason: Wheezing - Referrals Referrals: Andrew Pan MD [Primary Care Provider] - - Patient Instructions Printed Discharge Instructions: DI for Acute Bronchitis Additional Instructions: Please use 2 puffs of albuterol every 4 hours as needed for wheezing. Take the prednisone daily for the next 4 days. Please take the azithromycin daily for the next 4 days. Please follow up with your doctor. - Post Discharge Activity
[2016-07-23 17:42] VITALS: BP 135/75; PULSE 95
--- NOTE | 2016-07-25 22:03 | EKG ---
Test Reason : Blood Pressure : / mmHG Vent. Rate : 076 BPM Atrial Rate : 076 BPM P-R Int : 148 ms QRS Dur : 094 ms QT Int : 358 ms P-R-T Axes : 050 014 089 degrees QTc Int : 402 ms NORMAL SINUS RHYTHM POSSIBLE LEFT ATRIAL ENLARGEMENT T WAVE ABNORMALITY, CONSIDER LATERAL ISCHEMIA ABNORMAL ECG WHEN COMPARED WITH ECG OF 21-JUL-2016 22:55, NONSPECIFIC T WAVE ABNORMALITY, IMPROVED IN ANTERIOR LEADS Confirmed by ROBERT WOODS, BERYL ([id number]) on 07/25/2016 10:03:11 PM Referred By: Confirmed By:BERYL JONES MD
== END 2016-07-23 17:42 | disposition home or self-care (01) ==
LOC: JER 14:55
PROC: 3E0F7GC Introduction of Other Therapeutic Substance into Respiratory Tract, Via Natural or Artificial Opening (ICD-10-PCS; principal; 2016-07-23)
PROC: 3E0F7GC Introduction of Other Therapeutic Substance into Respiratory Tract, Via Natural or Artificial Opening (ICD-10-PCS; 2016-07-23)
PROC: 3E0F7GC Introduction of Other Therapeutic Substance into Respiratory Tract, Via Natural or Artificial Opening (ICD-10-PCS; 2016-07-23)
PROC: 3E03329 Introduction of Other Anti-infective into Peripheral Vein, Percutaneous Approach (ICD-10-PCS; 2016-07-23)
DX: J40 Bronchitis, not specified as acute or chronic (principal); E03.9 Hypothyroidism, unspecified; F11.20 Opioid dependence, uncomplicated
CPT/HCPCS: 36415; 71010-TC; 80053; 83605; 85025; 87040; 93005; 93010; 94640; 96365; 99283-25

== ENCOUNTER 2017-10-21 14:27 | Observation (INO) | payer OTHER ==
--- NOTE | 2017-10-21 14:39 | PDOC ---
History of Present Illness - General Chief Complaint: Blood Transfusion Stated Complaint: anemia,SOB,WEAKNESS - History of Present Illness Initial Comments: patient is a 56 year old female, with a significant past medical history of hypothyroidism, bronchitis, opioid dependence, and nicotine dependence, who presents to the emergency department complaining of 1-2 weeks of worsening fatigue and SOB on exertion. Pt states that 10 days ago, she became short of breath, diaphoretic and experienced BRBPR (roughly one cup of blood). Pt states three days later, she noted an episode of black, tarry stool; however she has had no episodes since then. Pt denies any pain with bleeding and this was the first episode of rectal bleeding she has experienced. Pt states since then she has been increasingly fatigued and SOB with exercise. Pt states she can normally ascend the two flights of stairs to her apartment easily, however has been increasingly difficult to perform since episode of bleeding. Pt seen by GI doctor yesterday, however labs notable for Hgb 7.8 and pt instructed to receive outpt transfusion before EGD/colonoscopy. Pt with no prior colonocopy. No hx of IBD, GERD, PUD, appendicitis, diverticulitis, hemorrhoids. Pt with chronic NSAID use 600mg Ibuprofen daily. Patient denies chest pain, shortness of breath, headache or dizziness. Denies fever, chills, nausea, vomiting, diarrhea and constipation. Denies dysuria, frequency, urgency and hematuria. Allergies: None reported. Past Surgical History: Social History: Current everyday smoker, 1 ppd.. Reports opiate dependence. No alcohol use. PCP: Dr. Gerald Riggins 10/21/17 14:38 Past History - Past Medical History Allergies/Adverse Reactions: Allergies Allergy/AdvReac Type Severity Reaction Status Date / Time No Known Allergies Allergy Verified 10/25/17 16:28 Home Medications: Ambulatory Orders Levothyroxine [Synthroid -] 125 mcg PO DAILY 07/21/16 Albuterol Sulfate Inhaler - [Ventolin HFA Inhaler -] 1 - 2 inh PO Q4H PRN #1 inhaler 07/23/16 Ferrous Sulfate [Feosol] 325 mg PO BID #60 tablet 10/22/17 Hydroxyzine HCl 25 mg PO DAILY 10/26/17 Clindamycin [Cleocin -] 450 mg PO Q8H #78 capsule 10/27/17 Anemia: No Asthma: No Cancer: No Cardiac Disorders: No CVA: No COPD: No CHF: No DVT: No Dementia: No Diabetes: No GI Disorders: No Disorders: No HTN: No Hypercholesterolemia: No Kidney Stones: No Liver Disease: No Seizures: No Thyroid Disease: Yes (HYPOTHYROIDISM) - Surgical History Abdominal Surgery: No Appendectomy: No Cardiac Surgery: No Cholecystectomy: No Lung Surgery: No Neurologic Surgery: No Orthopedic Surgery: No - Suicide/Smoking/Psychosocial Hx Smoking History: Never smoked Have you smoked in the past 12 months: Yes Number of Cigarettes Smoked Daily: 20 Cigars Per Day: 0 Information on smoking cessation initiated: Yes 'Breaking Loose' booklet given: 10/21/17 Hx Alcohol Use: No Drug/Substance Use Hx: Yes Substance Use Type: Opiates Hx Substance Use Treatment: No Review of Systems - Review of Systems Comments:: GENERAL/CONSTITUTIONAL: No fever or chills. +weakness HEAD, EYES, EARS, NOSE AND THROAT: No change in vision. No ear pain or discharge. No sore throat. CARDIOVASCULAR: No chest pain or shortness of breath RESPIRATORY: +POMPA; No cough, wheezing, or hemoptysis. GASTROINTESTINAL: + rectal bleeding; No nausea, vomiting, diarrhea or constipation. GENITOURINARY: No dysuria, frequency, or change in urination. MUSCULOSKELETAL: No joint or muscle swelling or pain. No neck or back pain. SKIN: No rash NEUROLOGIC: No headache, vertigo, loss of consciousness, or change in strength/ sensation. ENDOCRINE: No increased thirst. No abnormal weight change HEMATOLOGIC/LYMPHATIC: No anemia, easy bleeding, or history of blood clots. ALLERGIC/IMMUNOLOGIC: No hives or skin allergy. 10/21/17 14:38 *Physical Exam - Vital Signs Last Vital Signs Temp Pulse Resp BP Pulse Ox 98.1 F 79 18 177/74 100 10/21/17 14:32 10/21/17 14:32 10/21/17 14:32 10/21/17 14:32 10/21/17 14:32 - Physical Exam Comments: GENERAL: Elderly woman, Awake, alert, and fully oriented, in no acute distress HEAD: No signs of trauma, normocephalic, atraumatic EYES: +conjuctival pallor; PERRLA, EOMI, sclera anicteric, conjunctiva clear ENT: Auricles normal inspection, hearing grossly normal, nares patent, oropharynx clear without exudates. Moist mucosa NECK: Normal ROM, supple, no lymphadenopathy, JVD, or masses LUNGS: BL upper lobe rhonchi BL on expiratory; No distress, speaks full sentences HEART: Regular rate and rhythm, normal S1 and S2, no murmurs, rubs or gallops, peripheral pulses normal and equal bilaterally. ABDOMEN: Globular, Soft, nontender, normoactive bowel sounds. No guarding, no rebound. No masses EXTREMITIES : Normal inspection, Normal range of motion, no edema. No clubbing or cyanosis. NEUROLOGICAL: Cranial nerves II through XII grossly intact. Normal speech, normal gait, no focal sensorimotor deficits SKIN: Warm, Dry, normal turgor, no rashes or lesions noted 10/21/17 14:38 ED Treatment Course - LABORATORY CBC & Chemistry Diagram: 10/22/17 07:00 10/22/17 07:00 Medical Decision Making - Medical Decision Making patient is a 56 year old female, with a significant past medical history of hypothyroidism, bronchitis, opioid dependence, and nicotine dependence, who presents to the emergency department complaining of 1-2 weeks of worsening fatigue and SOB on exertion, in the setting of BRBPR 10 days ago. Pt most recent Hgb 7.8 yesterday. DDX includes PUD, gastritis, duodenal ulcer, IBD, UC, crohn's dz, diverticulitis, hemorrhoidal bleeding Plan: -cbc, cmp, trops, coags, lactic acid - FOBT - CXR, EKG - Will likely require transfusion and admit to obs 10/21/17 15:21 Hgb 8.4 on CBC. CXR and EKG are unremarkable. FOBT negative. Symphony microblogged, sign-out given to WILDA Berg. 10/21/17 19:01 *DC/Admit/Observation/Transfer Diagnosis at time of Disposition: Symptomatic anemia - Discharge Dispostion Disposition: HOME Condition at time of disposition: Improved - Prescriptions - Referrals - Patient Instructions - Post Discharge Activity
--- NOTE | 2017-10-21 15:48 | PDOC ---
Attending Attestation - Resident Resident Name: Joey Dominique - ED Attending Attestation I have performed the following: I have examined & evaluated the patient, The case was reviewed & discussed with the resident, I agree w/resident's findings & plan, Exceptions are as noted - HPI HPI: 10/21/17 15:48 57y F presents with hx of hypothyroidsm, presents with complaint of GIB and fatigue. The pt states she felt diaphoretic, and had an episode of bright red blood per rectum, then had an episode of dark stool a day or two later. Pt denies any abdominal pain, nausea/vomiting, cp. Pt has not had any more bloody/ dkar stools since today. The pt notes taht since tihs episode she has been feeling sob/guzman with exertion. Pt had lab work noting she was anemic. pt notes she has been taking motrin 600mg with some kind of oral suspension daily for the past few weeks for her arthtitis. denies etoh abuse GENERAL: The patient is awake, alert, and fully oriented, Nontoxic - in no acute distress. LUNGS: Breath sounds equal, clear to auscultation bilaterally. No wheezes, no rhonchi, no rales. HEART: Regular rate and rhythm, normal S1 and S2 without murmur, rub or gallop. ABDOMEN: soft nontender RECTAL: brown stool EXTREMITIES: Normal range of motion, no edema. No clubbing or cyanosis. No cords, erythema, or tenderness. NEUROLOGICAL: No facial assymetry, Normal speech, PSYCH: Normal mood, normal affect. SKIN: Warm, Dry, normal turgor, concern for GIB due to black stool and NSAID use w symptomatic anemia will recheck cbc --?> f anemic will transfuse will give protonix - Physicial Exam PE: 10/25/17 12:58 see above - Medical Decision Making 10/25/17 12:58 see above Heart Score/ECG Review - ECG Impressions Comment:: 10/21/17 15:48 Twelve-lead EKG was performed and reviewed by me. There is normal sinus rhythm with a normal rate. Rate of [address] is normal No ST changes suggestive of acute ischemia
[2017-10-21] MEDS ORDERED: PANTOPRAZOLE SODIUM 40 MG VIAL IVPUSH SCH (16:15)
[2017-10-21 16:27] LABS: EOS % 5.4 % (0-4.5); HEMATOCRIT 25.6 % (32.4-45.2); HEMOGLOBIN 8.4 GM/dL (10.7-15.3); LYMPH % 23.3 % (8-40); MCH 29.8 pg (25.7-33.7); MCHC 32.6 g/dl (32.0-36.0); MEAN CELL VOLUME 91.2 fl (80-96); MEAN PLT VOLUME 7.5 fl (7.5-11.1); MONO % 7.5 % (3.8-10.2); NEUT % 62.8 % (42.8-82.8); PLATELET COUNT 398 K/MM3 (134-434); RBC 2.81 M/mm3 (3.60-5.2); RDW 14.3 % (11.6-15.6); WHITE BLOOD COUNT 6.4 K/mm3 (4.0-10.0)
[2017-10-21] MEDS ORDERED: PANTOPRAZOLE SODIUM 40 MG VIAL ONE (16:44)
[2017-10-21 16:46] LABS: INR 0.98 (0.82-1.09); PROTHROMBIN TIME (PATIENT) 11.1 SEC (9.7-13.0)
[2017-10-21 16:49] LABS: ALBUMIN 3.6 g/dl (3.4-5.0); ANION GAP 9 (8-16); BILIRUBIN,TOTAL 0.1 mg/dL (0.2-1.0); BLOOD UREA NITROGEN 14 mg/dL (7-18); CALCIUM 8.6 mg/dL (8.5-10.1); CHLORIDE 107 mmol/L (98-107); CO2 25 mmol/L (21-32); CREATININE 0.7 mg/dL (0.55-1.02); GLUCOSE,RANDOM 85 mg/dL (74-106); POTASSIUM 4.3 mmol/L (3.5-5.1); SGOT/AST 19 U/L (15-37); SGPT/ALT 22 U/L (12-78); SODIUM 141 mmol/L (136-145); TOT PROT 7.3 g/dl (6.4-8.2)
[2017-10-21 16:52] LABS: ALK PHOS 80 U/L (45-117)
--- NOTE | 2017-10-21 20:40 | HP ---
CHIEF COMPLAINT: SOB PCP: Dr. Gerald Riggins HISTORY OF PRESENT ILLNESS: Pt is a 57 y/o F with PMH hypothyroid (radiotherapy x2 and thyroidectomy 2011), bronchitis, opioid dependence, nicotine, Fe deficiency who presented to ED with SOB on exertion for 10 days. Pt had some back pain and was taking Ibuprofen daily for about 2 weeks. Then, pt states that 10 days ago she was working outside and suddenly became diaphoretic and then had a painless bloody bowel movement with 1 cup of blood. 3 days later, pt had a black tarry bowel movement. She states that before this happened, she was able to climb 2 flights of stairs with groceries in both hands, but now she cannot climb 1/2 flight empty-handed because of leg and thigh pain and sob with palpitations. Pt states that she went to her doctor after she had dark stools, and was sent to a GI doctor who wanted to do elective EGD/colonoscopy, but wanted her to be optimized first. Her Hb at that time was 7.8. ER course was notable for: (1) Hb 8.4, FOBT neg (2) CXR negative (3) Recent Travel: denies PAST MEDICAL HISTORY: as above PAST SURGICAL HISTORY: thyroidectomy 2011, C/S Social History: Smoking: current. 1ppd x many years. States she is amenable to trying to quit once she settles some personal issues in her life. Alcohol: denies Drugs: Hx opiod dependence. No active drug use Family History: CABG x 6 in similarly aged brother last year. HLD Allergies No Known Allergies Allergy (Verified 10/21/17 14:32) HOME MEDICATIONS: Home Medications Medication Instructions Recorded Levothyroxine [Synthroid -] 125 mcg PO DAILY 07/21/16 Albuterol 0.083% Nebulizer Mone 1 neb NEB Q4H PRN #20 vial 07/23/16 [Ventolin 0.083% Nebulizer Soln -] Albuterol Sulfate Inhaler - 1 - 2 inh PO Q4H PRN #1 inhaler 07/23/16 [Ventolin HFA Inhaler -] Azithromycin 250 mg PO DAILY #4 tablet 07/23/16 Prednisone [Deltasone] 60 mg PO DAILY #12 tablet 07/23/16 REVIEW OF SYSTEMS CONSTITUTIONAL: Absent: fever, chills, diaphoresis, generalized weakness, malaise, loss of appetite, weight change HEENT: Absent: rhinorrhea, nasal congestion, throat pain, throat swelling, difficulty swallowing, mouth swelling, ear pain, eye pain, visual changes CARDIOVASCULAR: Absent: chest pain, syncope, palpitations, irregular heart rate, lightheadedness , peripheral edema RESPIRATORY: cough (chronic "smoker's cough"), shortness of breath , dyspnea with exertion Absent:, orthopnea, wheezing, stridor, hemoptysis GASTROINTESTINAL:melena, hematochezia Absent: abdominal pain, abdominal distension, nausea, vomiting, diarrhea, constipation, GENITOURINARY: Absent: dysuria, frequency, urgency, hesitancy, hematuria, flank pain, genital pain MUSCULOSKELETAL: Absent: myalgia, arthralgia, joint swelling, back pain, neck pain SKIN: Absent: rash, itching, pallor HEMATOLOGIC/IMMUNOLOGIC: Absent: easy bleeding, easy bruising, lymphadenopathy, frequent infections ENDOCRINE: Absent: unexplained weight gain, unexplained weight loss, heat intolerance, cold intolerance NEUROLOGIC: Absent: headache, focal weakness or paresthesias, dizziness, unsteady gait, seizure, mental status changes, bladder or bowel incontinence PSYCHIATRIC: Absent: anxiety, depression, suicidal or homicidal ideation, hallucinations. PHYSICAL EXAMINATION Vital Signs - 24 hr 10/21/17 14:32 Temperature 98.1 F Pulse Rate 79 Respiratory 18 Rate Blood Pressure 177/74 O2 Sat by Pulse 100 Oximetry (%) Gen: NAD HEENT: NCAT, PERRLA, EOMI Neck: supple, no jvd Cor: RRR, normal S1, S2, 3/6 blowing systolic murmur RUSB Pulm: CTA b/l Abd: soft nontender, no organomegally Ext: 2+ pulses, no edema Laboratory Results - last 24 hr 10/21/17 10/21/17 10/21/17 15:30 15:30 15:30 WBC 6.4 RBC 2.81 L D Hgb 8.4 L D Hct 25.6 L D MCV 91.2 MCH 29.8 MCHC 32.6 RDW 14.3 Plt Count 398 D MPV 7.5 Neutrophils % 62.8 Lymphocytes % 23.3 Monocytes % 7.5 Eosinophils % 5.4 H D Basophils % 1.0 Nucleated RBC % 0 PT with INR 11.10 INR 0.98 Sodium 141 Potassium 4.3 Chloride 107 Carbon Dioxide 25 Anion Gap 9 BUN 14 Creatinine 0.7 Creat Clearance w eGFR > 60 Random Glucose 85 Lactic Acid Calcium 8.6 Total Bilirubin 0.1 L AST 19 ALT 22 Alkaline Phosphatase 80 Creatine Kinase 97 Troponin I < 0.02 Total Protein 7.3 Albumin 3.6 Stool Occult Blood Blood Type Antibody Screen Crossmatch 10/21/17 10/21/17 10/21/17 15:30 15:31 16:50 WBC RBC Hgb Hct MCV MCH MCHC RDW Plt Count MPV Neutrophils % Lymphocytes % Monocytes % Eosinophils % Basophils % Nucleated RBC % PT with INR INR Sodium Potassium Chloride Carbon Dioxide Anion Gap BUN Creatinine Creat Clearance w eGFR Random Glucose Lactic Acid 0.8 Calcium Total Bilirubin AST ALT Alkaline Phosphatase Creatine Kinase Troponin I Total Protein Albumin Stool Occult Blood Negative Blood Type O NEGATIVE Antibody Screen Negative Crossmatch See Detail ASSESSMENT/PLAN: This is a 57 y/o F who presents to the ED with SOB for 10d since having bloody BM. Pt is on Obs for symptomatic anemia. #Symptomatic anemia w/ hist Fe defic -Hb 8.4 -Pt is symptomatic with new POMPA, easy fatiguability, tachycardia on minimal exertion all new since BRBPR -Hist Fe defic and recent NSAID use -ABG -Fe, TIBC, Ferritin, Transferrin -1 PRBC -f/u am CBC #?Chronic Bronchitis -active smoker -chronic cough with small amounts of sputum -stable #Hypothyroidism -Graves disease s/p thyroidectomy -on Synthroid at home #FEN -Not on fluids -lytes wnl -reg diet #PPx -SCDs #Dispo -Obs for transfusion Marcus Knight MD PGY-1 IM Visit type - Emergency Visit Emergency Visit: Yes ED Registration Date: 10/21/17 Care time: The patient presented to the Emergency Department on the above date and was hospitalized for further evaluation of their emergent condition. - New Patient This patient is new to me today: Yes Date on this admission: 10/21/17 - Critical Care Critical Care patient: No Hospitalist Screening - Colonoscopy Questionnaire Colonoscopy Questionnaire: Colonoscopy Questionnaire - Patient: 50 - 75 years old and never had a screening colonoscopy: Unknown History of colon or rectal polyps, or CA: Unknown History of IBD, Crohn's disease or UC: Unknown History of abdominal radiation therapy as a child: Unknown - Relative: 1 with colon or rectal CA, or polyps at age 60 or younger: Unknown Colon or rectal CA diagnosed at age 45 or younger: Unknown Multiple relatives with colon or rectal CA: Unknown - Outcome: Screening Result: Negative Screen
[2017-10-21 21:15] VITALS: BMI 38.2
[2017-10-21] MEDS: PANTOPRAZOLE SODIUM 40 MG VIAL IVPUSH SCH (21:16)
--- NOTE | 2017-10-21 23:58 | PN ---
Teaching Attending Note Name of Resident: Marcus Knight ATTENDING PHYSICIAN STATEMENT I saw and evaluated the patient. I reviewed the resident's note and discussed the case with the resident. I agree with the resident's findings and plan as documented. SUBJECTIVE: OBJECTIVE: ASSESSMENT AND PLAN: 57 y/o female presented with worsening SOB with exertion, stating she cannot climb 2 flights of stairs without being SOB, patient stated that 3 wks ago she noted bloody stools and melonic stools she went to [facility] and she was told she would require endoscopic evaluation but she has to have her Hb stable before. patient was take ibuprofen daily for joint pain, she did complain from epigastric pain, however after the episode patient never had any more bleeding. today Hb improved since 2 wks, however the patient is still symptomatic she was admitted to the hospital for symptomatic anemia and requires a transfusion patient was also advised to stop smoking
[2017-10-22 08:12] LABS: BASO % 0.6 % (0-2.0); EOS % 5.2 % (0-4.5); HEMOGLOBIN 9.4 GM/dL (10.7-15.3); LYMPH % 26.7 % (8-40); MCH 30.4 pg (25.7-33.7); MCHC 33.5 g/dl (32.0-36.0); MEAN PLT VOLUME 7.3 fl (7.5-11.1); MONO % 7.2 % (3.8-10.2); NEUT % 60.3 % (42.8-82.8); PLATELET COUNT 347 K/MM3 (134-434); RBC 3.08 M/mm3 (3.60-5.2); RDW 14.4 % (11.6-15.6)
[2017-10-22 08:34] LABS: CHLORIDE 108 mmol/L (98-107); POTASSIUM 4.4 mmol/L (3.5-5.1); SODIUM 141 mmol/L (136-145)
[2017-10-22 08:44] LABS: ANION GAP 7 (8-16); BLOOD UREA NITROGEN 14 mg/dL (7-18); CO2 26 mmol/L (21-32); CREATININE 0.8 mg/dL (0.55-1.02); GLUCOSE,RANDOM 90 mg/dL (74-106)
--- NOTE | 2017-10-22 08:57 | DS ---
Physical Exam: SUBJECTIVE: Patient seen and examined. asymptomatic. breathing improved. denies Cp, SOB, fever,c hilsl, N/V/C/D, melena, BRBPR OBJECTIVE: Vital Signs Period Temp Pulse Resp BP Sys/Ang Pulse Ox Last 24 Hr 98.1 F-98.6 F 57-86 18-20 137-185/53-74 96-100 PHYSICAL EXAM GENERAL: The patient is awake, alert, and fully oriented, in no acute distress. HEAD: Normal with no signs of trauma. EYES: PERRL, extraocular movements intact, sclera anicteric, conjunctiva clear. ENT: Ears normal, nares patent, oropharynx clear without exudates, moist mucous membranes. NECK: Trachea midline, full range of motion, supple. LUNGS: Breath sounds equal, clear to auscultation bilaterally, no wheezes, no crackles, no accessory muscle use. HEART: Regular rate and rhythm, S1, S2 without murmur, rub or gallop. ABDOMEN: Soft, nontender, nondistended, normoactive bowel sounds, no guarding, no rebound, no hepatosplenomegaly, no masses. EXTREMITIES: 2+ pulses, warm, well-perfused, no edema. NEUROLOGICAL: Cranial nerves II through XII grossly intact. Normal speech, gait not observed. PSYCH: Normal mood, normal affect. SKIN: Warm, dry, normal turgor, no rashes or lesions noted. LABS Laboratory Results - last 24 hr 10/21/17 10/21/17 10/21/17 15:30 15:30 15:30 WBC 6.4 RBC 2.81 L D Hgb 8.4 L D Hct 25.6 L D MCV 91.2 MCH 29.8 MCHC 32.6 RDW 14.3 Plt Count 398 D MPV 7.5 Neutrophils % 62.8 Lymphocytes % 23.3 Monocytes % 7.5 Eosinophils % 5.4 H D Basophils % 1.0 Nucleated RBC % 0 PT with INR 11.10 INR 0.98 Sodium 141 Potassium 4.3 Chloride 107 Carbon Dioxide 25 Anion Gap 9 BUN 14 Creatinine 0.7 Creat Clearance w eGFR > 60 Random Glucose 85 Lactic Acid Calcium 8.6 Ferritin Total Bilirubin 0.1 L AST 19 ALT 22 Alkaline Phosphatase 80 Creatine Kinase 97 Troponin I < 0.02 Total Protein 7.3 Albumin 3.6 Stool Occult Blood Blood Type Antibody Screen Crossmatch 10/21/17 10/21/17 10/21/17 15:30 15:31 16:50 WBC RBC Hgb Hct MCV MCH MCHC RDW Plt Count MPV Neutrophils % Lymphocytes % Monocytes % Eosinophils % Basophils % Nucleated RBC % PT with INR INR Sodium Potassium Chloride Carbon Dioxide Anion Gap BUN Creatinine Creat Clearance w eGFR Random Glucose Lactic Acid 0.8 Calcium Ferritin Total Bilirubin AST ALT Alkaline Phosphatase Creatine Kinase Troponin I Total Protein Albumin Stool Occult Blood Negative Blood Type O NEGATIVE Antibody Screen Negative Crossmatch See Detail 10/21/17 10/21/17 10/22/17 20:30 22:00 07:00 WBC 7.0 RBC 3.08 L Hgb 9.4 L D Hct 28.0 L MCV 91.0 MCH 30.4 MCHC 33.5 RDW 14.4 Plt Count 347 MPV 7.3 L Neutrophils % 60.3 Lymphocytes % 26.7 Monocytes % 7.2 Eosinophils % 5.2 H Basophils % 0.6 Nucleated RBC % 0 PT with INR INR Sodium Potassium Chloride Carbon Dioxide Anion Gap BUN Creatinine Creat Clearance w eGFR Random Glucose Lactic Acid Calcium Ferritin 6.615 L Total Bilirubin AST ALT Alkaline Phosphatase Creatine Kinase Troponin I Total Protein Albumin Stool Occult Blood Blood Type O NEGATIVE Antibody Screen Negative Crossmatch HOSPITAL COURSE: Date of Admission:10/21/17 Date of Discharge: 10/22/17 Admitting diagnosis: symptomatic anemia, iron deficiency anemia PRe hospital course: Pt is a 57 y/o F with PMH hypothyroid (radiotherapy x2 and thyroidectomy 2012), bronchitis, opioid dependence, nicotine, Fe deficiency who presented to ED with SOB on exertion for 10 days. Pt had some back pain and was taking Ibuprofen daily for about 2 weeks. Then, pt states that 10 days ago she was working outside and suddenly became diaphoretic and then had a painless bloody bowel movement with 1 cup of blood. 3 days later, pt had a black tarry bowel movement. She states that before this happened, she was able to climb 2 flights of stairs with groceries in both hands, but now she cannot climb 1/2 flight empty-handed because of leg and thigh pain and sob with palpitations. Pt states that she went to her doctor after she had dark stools, and was sent to a GI doctor who wanted to do elective EGD/colonoscopy, but wanted her to be optimized first. Her Hb at that time was 7.8. Subsequent hospital course medicine observation. received 1 unit PRBC with good response. symptoms resolved. Ferritin <10 and given venofer. initial BP noted to be high but may be due to dyspnea and now controlled. d/c home on oral iron. advised to avoid NSAIDS. advised on side effects of iron. would benefit from repeat IV iron. should monitor BP closely and start antihypertensives if indicated Minutes to complete discharge: 40 Discharge Summary Reason For Visit: ANEMIA; RECTAL HEMORRHAGE Current Active Problems Iron deficiency anemia (Acute) Symptomatic anemia (Acute) Condition: Improved - Instructions Diet, Activity, Other Instructions: You were admitted to the hospital because you were having difficulty breathing. This is likely because your blood counts were low You received 1 unit of blood and your symptoms resolved. You were also found to have very low iron levels and received 1 dose of IV iron. You may benefit from additional IV doses, speak to your doctor regarding this You are being started on oral iron supplements. Side effects include black stools and constipation. Please ensure you are having regular bowel movement AVOID NSAID and the like products (ibuprofen, aleive, motrin, naproxen, etc) Follow up wtih your primary care doctor this week. You should have a repeat of your blood counts to ensure they are stable Follow up with your Hyperbaric Technologist as you will need to have a colonoscopy as well as possible upper endoscopy. If you would like a second opionon another GI doctor has been provided If your symptoms worsen or you notice a large amount of bright blood in your stool return to the ER. Referrals: Jose Enrique Granado MD [Staff Physician] - Disposition: HOME - Home Medications Comprehensive Discharge Medication List: Ambulatory Orders Levothyroxine [Synthroid -] 125 mcg PO DAILY 07/21/16 Albuterol Sulfate Inhaler - [Ventolin HFA Inhaler -] 1 - 2 inh PO Q4H PRN #1 inhaler 07/23/16 Ferrous Sulfate [Feosol] 325 mg PO BID #60 tablet 10/22/17 This patient is new to me today: Yes Date on this admission: 10/22/17 Emergency Visit: Yes ED Registration Date: 10/21/17 Care time: The patient presented to the Emergency Department on the above date and was hospitalized for further evaluation of their emergent condition. Critical Care patient: No - Discharge Referral Referred to [facility] Med P.C.: No
[2017-10-22 09:02] LABS: CALCIUM 8.7 mg/dL (8.5-10.1)
[2017-10-22] MEDS ORDERED: IRON SUCROSE INJECTION 200 MG in SODIUM CHLORIDE 90 ML IVPB ONE (09:15)
[2017-10-22] MEDS: PANTOPRAZOLE SODIUM 40 MG VIAL IVPUSH SCH (10:19)
[2017-10-22 11:29] VITALS: BP 138/63; PULSE 56; TEMP 97.9
[2017-10-23 08:06] LABS: SERUM IRON SATURATION 5 % (15-55); TOTAL IRON BINDING CAPACITY 413 ug/dL (250-450); TRANSFERRIN 317 mg/dL (200-370); UIBC 392 ug/dL (131-425)
--- NOTE | 2017-10-23 22:26 | EKG ---
Test Reason : Blood Pressure : / mmHG Vent. Rate : 064 BPM Atrial Rate : 064 BPM P-R Int : 168 ms QRS Dur : 090 ms QT Int : 426 ms P-R-T Axes : 049 013 048 degrees QTc Int : 439 ms NORMAL SINUS RHYTHM NORMAL ECG WHEN COMPARED WITH ECG OF 23-JUL-2016 16:26, NO SIGNIFICANT CHANGE WAS FOUND Confirmed by WONG GARDINER MD ([id number]) on 10/23/2017 10:26:16 PM Referred By: Confirmed By:WONG GARDINER MD
== END 2017-10-22 16:05 | disposition home or self-care (01) ==
LOC: JER 14:27 → JERBED 19:07 → J8W 21:04
PROVIDERS: ADMIT Internal Medicine; ATTEND Internal Medicine
PROC: 30233N1 Transfusion of Nonautologous Red Blood Cells into Peripheral Vein, Percutaneous Approach (ICD-10-PCS; principal; 2017-10-21)
PROC: 3E033GC Introduction of Other Therapeutic Substance into Peripheral Vein, Percutaneous Approach (ICD-10-PCS; 2017-10-21)
DX: R50.9 Fever, unspecified (principal); E89.0 Postprocedural hypothyroidism; F17.200 Nicotine dependence, unspecified, uncomplicated; F11.20 Opioid dependence, uncomplicated; F14.20 Cocaine dependence, uncomplicated
CPT/HCPCS: 36415; 36430; 71045-TC-FY; 80048; 80053; 82272; 82550; 82728; 83540; 83550; 83605; 84466; 84484; 85025; 85610; 86850; 86900; 86901; 86922; 93005; 93010; 96365; 96375; 96376; 99285-25; G0378; J1756; P9038; P9058

== ENCOUNTER 2017-10-25 16:14 | Inpatient (IN) | payer OTHER ==
--- NOTE | 2017-10-25 16:37 | PDOC ---
Rapid Medical Evaluation Chief Complaint: Edema Time Seen by Provider: 10/25/17 16:32 Medical Evaluation: Allergies Allergy/AdvReac Type Severity Reaction Status Date / Time No Known Allergies Allergy Verified 10/25/17 16:28 Vital Signs Temp Pulse Resp BP Pulse Ox 97.9 F 79 18 190/77 98 10/25/17 16:28 10/25/17 16:28 10/25/17 16:28 10/25/17 16:28 10/25/17 16:28 10/25/17 16:35 I have performed a brief in-person evaluation of this patient. The patient presents with a chief complaint of: CELLULITIS S/P iv PLACEMENT 3 DAYS AGO- Pertinent physical exam findings: SWELLING AND PAIN TO RIGHT HAND WITH STREAKING , I have ordered the following: cbc, cmP, bLOOD CULTURES, UA The patient will proceed to the ED for further evaluation. 10/25/17 16:36
[2017-10-25 17:01] LABS: BASO % 0.9 % (0-2.0); EOS % 7.5 % (0-4.5); HEMATOCRIT 32.1 % (32.4-45.2); HEMOGLOBIN 10.3 GM/dL (10.7-15.3); LYMPH % 22.4 % (8-40); MCH 29.6 pg (25.7-33.7); MCHC 32.1 g/dl (32.0-36.0); MEAN CELL VOLUME 92.3 fl (80-96); MEAN PLT VOLUME 7.4 fl (7.5-11.1); MONO % 6.4 % (3.8-10.2); NEUT % 62.8 % (42.8-82.8); PLATELET COUNT 372 K/MM3 (134-434); RBC 3.48 M/mm3 (3.60-5.2); RDW 15.2 % (11.6-15.6); WHITE BLOOD COUNT 8.5 K/mm3 (4.0-10.0)
[2017-10-25 17:24] LABS: ALBUMIN 3.9 g/dl (3.4-5.0); ANION GAP 7 (8-16); BILIRUBIN,TOTAL 0.2 mg/dL (0.2-1.0); BLOOD UREA NITROGEN 18 mg/dL (7-18); CALCIUM 8.6 mg/dL (8.5-10.1); CHLORIDE 104 mmol/L (98-107); CO2 26 mmol/L (21-32); CREATININE 0.9 mg/dL (0.55-1.02); GLUCOSE,RANDOM 142 mg/dL (74-106); POTASSIUM 4.3 mmol/L (3.5-5.1); SGOT/AST 16 U/L (15-37); SGPT/ALT 27 U/L (12-78); SODIUM 137 mmol/L (136-145); TOT PROT 7.7 g/dl (6.4-8.2)
[2017-10-25 17:25] LABS: ALK PHOS 95 U/L (45-117)
[2017-10-25] MEDS ORDERED: VANCOMYCIN 1,000 MG in DEXTROSE 5%-WATER - 250 ML IVPB ONE (18:26)
--- NOTE | 2017-10-25 18:26 | PDOC ---
History of Present Illness - General History Source: Patient Exam Limitations: No Limitations - History of Present Illness Initial Comments: 10/25/17 18:23 57-year-old female history of hypothyroid, COPD, recently admitted with a GI bleed Ailyn discharged on 10/22/2017, here today complaining of right hand swelling. Patient states she had an IV placed in that hand or blood transfusion since her discharge that the arm is become swollen red and warm. She woke up today with the symptoms since that time is become progressively more swollen up the arm with tracking denies any trauma denies any injury no fevers or chills no pain in the hand just notes the swelling. No chest pain or shortness of breath <Jessica Mccray - Last Filed: 10/25/17 19:12> <Alessio Cochran - Last Filed: 10/25/17 20:01> - General Chief Complaint: Edema Stated Complaint: PAIN Time Seen by Provider: 10/25/17 16:32 Past History - Past Medical History Anemia: Yes Asthma: No Cancer: No Cardiac Disorders: No CVA: No COPD: No CHF: No DVT: No Dementia: No Diabetes: No GI Disorders: No Disorders: No HTN: No Hypercholesterolemia: No Kidney Stones: No Liver Disease: No Seizures: No Thyroid Disease: Yes (HYPOTHYROIDISM) - Surgical History Abdominal Surgery: No Appendectomy: No Cardiac Surgery: No Cholecystectomy: No Lung Surgery: No Neurologic Surgery: No Orthopedic Surgery: No - Suicide/Smoking/Psychosocial Hx Smoking History: Current every day smoker Have you smoked in the past 12 months: Yes Number of Cigarettes Smoked Daily: 20 Cigars Per Day: 0 Information on smoking cessation initiated: No 'Breaking Loose' booklet given: 10/21/17 Hx Alcohol Use: No Drug/Substance Use Hx: Yes Substance Use Type: Opiates Hx Substance Use Treatment: No <Jessica Mccray - Last Filed: 10/25/17 19:12> <Alessio Cochran - Last Filed: 10/25/17 20:01> - Past Medical History Allergies/Adverse Reactions: Allergies Allergy/AdvReac Type Severity Reaction Status Date / Time No Known Allergies Allergy Verified 10/25/17 16:28 Home Medications: Ambulatory Orders Levothyroxine [Synthroid -] 125 mcg PO DAILY 07/21/16 Albuterol Sulfate Inhaler - [Ventolin HFA Inhaler -] 1 - 2 inh PO Q4H PRN #1 inhaler 07/23/16 Ferrous Sulfate [Feosol] 325 mg PO BID #60 tablet 10/22/17 Review of Systems - Review of Systems Constitutional: No: Chills, Diaphoresis, Fever HEENTM: No: Eye Pain Respiratory: No: Cough, Orthopnea Cardiac (ROS): No: Chest Pain, Edema ABD/GI: No: Abdominal Distended Musculoskeletal: No: Muscle Weakness Integumentary: Yes: Erythema Neurological: No: Headache All Other Systems: Reviewed and Negative <Jessica Mccray - Last Filed: 10/25/17 19:12> *Physical Exam - Vital Signs Last Vital Signs Temp Pulse Resp BP Pulse Ox 97.9 F 79 18 190/77 98 10/25/17 16:28 10/25/17 16:28 10/25/17 16:28 10/25/17 16:28 10/25/17 16:28 - Physical Exam General Appearance: Yes: Appropriately Dressed HEENT: positive: Normal ENT Inspection Neck: positive: Trachea midline Respiratory/Chest: positive: Lungs Clear, Normal Breath Sounds Cardiovascular: positive: Regular Rhythm, Regular Rate, S1, S2 Gastrointestinal/Abdominal: positive: Normal Bowel Sounds, Flat, Soft. negative : Tender Musculoskeletal: positive: Normal Inspection Extremity: positive: Normal Capillary Refill, Erythema, Other (right hand arm swelling, erythema edema. 2 + radial ulnar pulses. from at wrist, and elbow. no pain along tendon sheath. no pain with passive rom at finger. ) Neurologic: positive: Fully Oriented, Alert, Normal Mood/Affect <Jessica Mccray - Last Filed: 10/25/17 19:12> - Vital Signs Last Vital Signs Temp Pulse Resp BP Pulse Ox 97.9 F 79 18 190/77 98 10/25/17 16:28 10/25/17 16:28 10/25/17 16:28 10/25/17 16:28 10/25/17 16:28 <Alessio Cochran - Last Filed: 10/25/17 20:01> ED Treatment Course - LABORATORY CBC & Chemistry Diagram: 10/25/17 16:51 10/25/17 16:51 - ADDITIONAL ORDERS Additional order review: Laboratory Results 10/25/17 16:51 Sodium 137 Potassium 4.3 Chloride 104 Carbon Dioxide 26 Anion Gap 7 L BUN 18 Creatinine 0.9 Creat Clearance w eGFR > 60 Random Glucose 142 H Calcium 8.6 Total Bilirubin 0.2 D AST 16 ALT 27 Alkaline Phosphatase 95 Total Protein 7.7 Albumin 3.9 10/25/17 16:51 RBC 3.48 L MCV 92.3 MCHC 32.1 RDW 15.2 MPV 7.4 L Neutrophils % 62.8 Lymphocytes % 22.4 Monocytes % 6.4 Eosinophils % 7.5 H Basophils % 0.9 - RADIOLOGY Radiology Studies Ordered: Category Date Time Status HAND- RIGHT [RAD] Stat Radiology 10/25/17 18:20 Ordered <Jessica Mccray - Last Filed: 10/25/17 19:12> - LABORATORY CBC & Chemistry Diagram: 10/25/17 16:51 10/25/17 16:51 - ADDITIONAL ORDERS Additional order review: Laboratory Results 10/25/17 16:51 Sodium 137 Potassium 4.3 Chloride 104 Carbon Dioxide 26 Anion Gap 7 L BUN 18 Creatinine 0.9 Creat Clearance w eGFR > 60 Random Glucose 142 H Calcium 8.6 Total Bilirubin 0.2 D AST 16 ALT 27 Alkaline Phosphatase 95 Total Protein 7.7 Albumin 3.9 10/25/17 16:51 RBC 3.48 L MCV 92.3 MCHC 32.1 RDW 15.2 MPV 7.4 L Neutrophils % 62.8 Lymphocytes % 22.4 Monocytes % 6.4 Eosinophils % 7.5 H Basophils % 0.9 - Medications Given in the ED: ED Medications Discontinued Medications Generic Name Dose Route Start Last Admin Trade Name Freq PRN Reason Stop Dose Admin Vancomycin HCl 1,000 mg/ 250 mls @ 166.667 mls/hr 10/25/17 18:26 10/25/17 19: 33 Dextrose IVPB 10/25/17 19:55 166.667 mls/hr ONCE ONE Administration Protocol Piperacillin Sod/Tazobactam 50 mls @ 100 mls/hr 10/25/17 18:27 10/25/17 18:42 Sod 3.375 gm/ Dextrose IVPB 10/25/17 18:56 100 mls/hr ONCE ONE Administration Protocol Oxycodone/Acetaminophen 1 combo 10/25/17 19:27 10/25/17 19:33 Percocet 5/325 - PO 10/25/17 19:28 1 combo ONCE ONE Administration <Ou,Alessio - Last Filed: 10/25/17 20:01> Medical Decision Making - Medical Decision Making 10/25/17 19:12 57-year-old history of hypothyroid with right hand swelling status post hospitalization and discharge 3 days ago. Differential includes upper extremity DVT, cellulitis, plan Doppler of the right upper extremity IV antibiotics patient will likely require admission to the rapid progression of cellulitis upper arm signed out to Dr. Hunt pending Doppler of the right upper extremity he' s been Vanco and Zosyn for antibiotics <Jessica Mccray - Last Filed: 10/25/17 19:12> *DC/Admit/Observation/Transfer <Jessica Mccray - Last Filed: 10/25/17 19:12> - Discharge Dispostion Decision to Admit order: Yes <Alessio Cochran - Last Filed: 10/25/17 20:01> Diagnosis at time of Disposition: Cellulitis - Referrals Referrals: Gerald Riggins MD [Primary Care Provider] - - Patient Instructions - Post Discharge Activity
[2017-10-25] MEDS ORDERED: PIPERACILLIN/TAZOB 3.375 GM 3.375 GM in DEXTROSE 5%-WATER - 50 ML IVPB ONE (18:27)
[2017-10-25] MEDS ORDERED: PIPERACILLIN/TAZOB 3.375 GM 3.375 GM/50 ML BAG IVPB ONE (18:36)
[2017-10-25] MEDS ORDERED: VANCOMYCIN 1 GRAM (PRE-DOCKED) 1,000 MG/250 ML BAG IVPB ONE (18:36)
--- NOTE | 2017-10-25 19:41 | HP ---
CHIEF COMPLAINT: R hand swelling PCP: Gerald Riggins HISTORY OF PRESENT ILLNESS: 57F w/ hx of hypothyroidism, COPD, and BIJU who presents with right hand swelling. Per patient, her symptom started last night at 9pm. It was hot and tender to touch, and was mildly relieved with tylenol and ice packs. The swelling, erythema, and tenderness increased this morning prompting her to come to the hospital. Of note, pt was recently discharged from [facility] for a GI bleed likely 2/2 ibuprofen use for back pain. While in the hospital, she received 1 unit of PRBCs, and the IV site was placed in her hand. She was discharged on 10/22 and told to f/u with her GI as an outpatient for an EGD and colonoscopy. Pt never had the opportunity to see her GI physician yet, and she states that the IV site was where her swelling started. She denies injury to her hand since her discharge. She denies fevers, chills, headache, chest pain, SOB, n/v/d/c, abdominal pain, dysuria, and any other rashes. 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 She is retired, used to work on [address]. Family History: father- HTN, HLD, grave's disease mother- lung ca, CAD Allergies No Known Allergies Allergy (Verified 10/25/17 16:28) HOME MEDICATIONS: Home Medications Medication Instructions Recorded Levothyroxine [Synthroid -] 125 mcg PO DAILY 07/21/16 Albuterol Sulfate Inhaler - 1 - 2 inh PO Q4H PRN #1 inhaler 07/23/16 [Ventolin HFA Inhaler -] Ferrous Sulfate [Feosol] 325 mg PO BID #60 tablet 10/22/17 REVIEW OF SYSTEMS CONSTITUTIONAL: Absent: fever, chills, diaphoresis, generalized weakness, malaise, loss of appetite, weight change HEENT: Absent: rhinorrhea, nasal congestion, throat pain, throat swelling, difficulty swallowing, mouth swelling, ear pain, eye pain, visual changes CARDIOVASCULAR: Absent: chest pain, syncope, palpitations, irregular heart rate, lightheadedness , peripheral edema RESPIRATORY: Absent: cough, shortness of breath, dyspnea with exertion, orthopnea, wheezing, stridor, hemoptysis GASTROINTESTINAL: Absent: abdominal pain, abdominal distension, nausea, vomiting, diarrhea, constipation, melena, hematochezia GENITOURINARY: Absent: dysuria, frequency, urgency, hesitancy, hematuria, flank pain, genital pain MUSCULOSKELETAL: Absent: back pain, neck pain present: hand pain and swelling SKIN: Absent: pallor present: right hand rash HEMATOLOGIC/IMMUNOLOGIC: Absent: easy bleeding, easy bruising, lymphadenopathy, frequent infections ENDOCRINE: Absent: unexplained weight gain, unexplained weight loss, heat intolerance, cold intolerance NEUROLOGIC: Absent: headache, focal weakness or paresthesias, dizziness, unsteady gait, seizure, mental status changes, bladder or bowel incontinence PSYCHIATRIC: Absent: anxiety, depression, suicidal or homicidal ideation, hallucinations. PHYSICAL EXAMINATION Vital Signs - 24 hr 10/25/17 16:28 Temperature 97.9 F Pulse Rate 79 Respiratory 18 Rate Blood Pressure 190/77 O2 Sat by Pulse 98 Oximetry (%) GENERAL: middle aged female, sitting in bed, awake, alert, and fully oriented, in no acute distress. HEENT: NC, AT NECK: no lymphadenopathy LUNGS: inspiratory wheezing, no rales HEART: Regular rate and rhythm, normal S1 and S2 without murmur, rub or gallop. ABDOMEN: Soft, nontender, not distended, normoactive bowel sounds, no guarding, no rebound, no masses. No hepatomegaly or splenomegaly. MUSCULOSKELETAL: right hand is erythematous on dorsal surface up to mid-medial forearm. It is warm to palpation, tender to palpation. hand is stiff. no fluctuance or sign of collection of pus. NEUROLOGICAL: Cranial nerves II-XII intact. Normal speech. Laboratory Results - last 24 hr 10/25/17 10/25/17 16:51 16:51 WBC 8.5 RBC 3.48 L Hgb 10.3 L Hct 32.1 L MCV 92.3 MCH 29.6 MCHC 32.1 RDW 15.2 Plt Count 372 MPV 7.4 L Absolute Neuts (auto) 5.3 Neutrophils % 62.8 Lymphocytes % 22.4 Monocytes % 6.4 Eosinophils % 7.5 H Basophils % 0.9 Nucleated RBC % 0 Sodium 137 Potassium 4.3 Chloride 104 Carbon Dioxide 26 Anion Gap 7 L BUN 18 Creatinine 0.9 Creat Clearance w eGFR > 60 Random Glucose 142 H Calcium 8.6 Total Bilirubin 0.2 D AST 16 ALT 27 Alkaline Phosphatase 95 Total Protein 7.7 Albumin 3.9 ASSESSMENT/PLAN: 57F w/ hx of hypothyroidism, COPD, and BIJU who presents with right hand swelling at previous insertion site of IV from prior hospitalization. #right hand swelling -likely 2/2 cellulitis at previous insertion site of IV from prior hospitalization -f/u right hand XR -f/u right hand doppler -f/u Bcx -trend temps and WBCs -pain control with tylenol and ice packs PRN -IV clindamycin 600mg q8h -no leukocytosis or fever #BIJU -Hgb of 10.3 (9.4 on last discharge) -continue to trend -continue home ferrous sulfate #COPD -not active problem -duonebs PRN #nicotine dependence -nicotine patch PRN #HTN -BP of 190/77 on presentation -start HCTZ and lisinopril -continue to monitor BP #hypothyroidism -continue home levothyroxine #FEN/ppx -no IVF -electrolytes wnl -sodium controlled diet -lovenox -no GI ppx indicated #Dispo -admit to med/surg Case discussed with attending, Dr. Hale. -Steve Mendoza MD PGY1 Visit type - Emergency Visit Emergency Visit: Yes Care time: The patient presented to the Emergency Department on the above date and was hospitalized for further evaluation of their emergent condition. - New Patient This patient is new to me today: Yes Date on this admission: 10/25/17 - Critical Care Critical Care patient: No Hospitalist Screening - Colonoscopy Questionnaire Colonoscopy Questionnaire: Colonoscopy Questionnaire - Patient: 50 - 75 years old and never had a screening colonoscopy: Unknown History of colon or rectal polyps, or CA: Unknown History of IBD, Crohn's disease or UC: Unknown History of abdominal radiation therapy as a child: Unknown - Relative: 1 with colon or rectal CA, or polyps at age 60 or younger: Unknown Colon or rectal CA diagnosed at age 45 or younger: Unknown Multiple relatives with colon or rectal CA: Unknown - Outcome: Screening Result: Negative Screen
--- NOTE | 2017-10-25 19:47 | PN ---
Teaching Attending Note Name of Resident: Steve Mendoza ATTENDING PHYSICIAN STATEMENT I saw and evaluated the patient. I reviewed the resident's note and discussed the case with the resident. I agree with the resident's findings and plan as documented. SUBJECTIVE: Patient is a 57 year old woman with history of hypothyroidism, COPD, recently admitted with a GI bleed and discharged on 10/22/2017, here today complaining of right hand swelling. Patient states she had an IV placed in that hand and since her discharge that the arm is become swollen red and warm. She woke up today with the symptoms since that time is become progressively more swollen up the arm with tracking. She denies any other trauma. OBJECTIVE: Vital Signs Period Temp Pulse Resp BP Sys/Ang Pulse Ox Last 24 Hr 97.9 F 79 18 190/77 98 HEENT: No Jaundice, eye redness or discharge, PERRLA, EOMI. Normocephalic, atraumatic. External ears are normal and hearing is grossly intact. No nasal discharge. Neck: Supple, nontender. No palpable adenopathy or thyromegaly. No JVD Chest: Good effort. Clear to auscultation and percussion. Heart: Regular. No S3, rub or murmur Abdomen: Not distended, soft, nontender and no HSM. No rebound or guarding. Normoactive bowel sounds. Ext: Erythema and edema of right forearm, most prominent on dorsum of right hand. No open wound. No leg edema. Skin: Warm and dry. No petechiae, rash or ecchymosis. Neuro: Alert. Oriented x3. CN 2-12 grossly intact. Sensation grossly intact in all four extremities and DTR are symmetric. Current Medications Generic Name Dose Route Start Last Admin Trade Name Freq PRN Reason Stop Dose Admin Vancomycin HCl 1,000 mg/ 250 mls @ 166.667 mls/hr 10/25/17 18:26 10/25/17 19: 33 Dextrose IVPB 10/25/17 19:55 166.667 mls/hr ONCE ONE Administration Protocol Home Medications Medication Instructions Recorded Levothyroxine [Synthroid -] 125 mcg PO DAILY 07/21/16 Albuterol Sulfate Inhaler - 1 - 2 inh PO Q4H PRN #1 inhaler 07/23/16 [Ventolin HFA Inhaler -] Ferrous Sulfate [Feosol] 325 mg PO BID #60 tablet 10/22/17 Abnormal Lab Results 10/25/17 10/25/17 16:51 16:51 RBC 3.48 L Hgb 10.3 L Hct 32.1 L MPV 7.4 L Eosinophils % 7.5 H Anion Gap 7 L Random Glucose 142 H ASSESSMENT AND PLAN: 1. Right forearm cellulitis and thrombophlephitis - Admit as inpatient and treat with IV clindamycin to cover possible MRSA and use warm compress and tylenol for pain relief. Xray and doppler scan of arm pending. Will monitor closely and switch to Vancomycin if she fails to improve. 2. Uncontrolled hypertension - Will start Lisinopril and HCTZ as well as low salt diet. 3. Anemia - Likely due to recent GI bleeding. Will continue oral iron. 4. Smoking - Will provide all the necessary assistance to facilitate smoking cessation and offer her nicotine patch. 5. DVT prophylaxis - Heparin 5000u sq tid 6. Advance directives - Full code
[2017-10-25] MEDS ORDERED: ALBUTEROL SO4 2.5/IPRATROPIUM 0.5 INH SOL 3 ML VIAL.NEB. NEB PRN (20:33)
[2017-10-25] MEDS ORDERED: HYDROCHLOROTHIAZIDE 25 MG TABLET (FP) ONE (21:06)
[2017-10-25] MEDS: HYDROCHLOROTHIAZIDE 12.5 MG CAPSULE (FP) PO SCH (21:27)
[2017-10-25] MEDS: NICOTINE 14 MG/24 HOURS TOPICAL PATCH TD SCH (21:28)
[2017-10-25] MEDS ORDERED: LISINOPRIL 10 MG TABLET (FP) PO SCH (22:00)
[2017-10-25] MEDS ORDERED: PATIENT'S OWN MEDICATION (NON-FORMULARY) (Ferrous Sulfate [Feosol] 325 MG) PO SCH (22:00)
[2017-10-25] MEDS ORDERED: LISINOPRIL 5 MG TABLET (FP) ONE (22:26)
[2017-10-25] MEDS ORDERED: FERROUS SO4 325 MG TABLET (FP) ONE (22:27)
[2017-10-25] MEDS: FERROUS SO4 325 MG TABLET (FP) PO SCH (22:46)
[2017-10-26] MEDS ORDERED: ACETAMINOPHEN 325 MG TABLET (FP) ONE (01:44)
[2017-10-26] MEDS: ACETAMINOPHEN 325 MG TABLET (FP) PO PRN ×3 (01:45→17:30)
[2017-10-26] MEDS: CLINDAMYCIN 600MG PREMIX IVPB 600 MG/50 ML BAG IVPB SCH ×3 (03:28→17:30)
[2017-10-26 03:56] VITALS: BMI 40.6
[2017-10-26] MEDS: LEVOTHYROXINE NA 125 MCG TABLET (FP) PO SCH (06:50)
[2017-10-26 08:01] LABS: BASO % 0.6 % (0-2.0); EOS % 6.7 % (0-4.5); HEMATOCRIT 29.6 % (32.4-45.2); HEMOGLOBIN 9.8 GM/dL (10.7-15.3); LYMPH % 24.7 % (8-40); MCH 30.3 pg (25.7-33.7); MCHC 33.2 g/dl (32.0-36.0); MEAN CELL VOLUME 91.2 fl (80-96); MEAN PLT VOLUME 7.3 fl (7.5-11.1); MONO % 9.3 % (3.8-10.2); NEUT % 58.7 % (42.8-82.8); PLATELET COUNT 324 K/MM3 (134-434); RBC 3.25 M/mm3 (3.60-5.2); RDW 15.3 % (11.6-15.6); WHITE BLOOD COUNT 8.1 K/mm3 (4.0-10.0)
[2017-10-26 08:18] LABS: CHLORIDE 104 mmol/L (98-107); SODIUM 138 mmol/L (136-145)
[2017-10-26 08:25] LABS: ALBUMIN 3.7 g/dl (3.4-5.0); ALK PHOS 91 U/L (45-117); ANION GAP 10 (8-16); BILIRUBIN,TOTAL 0.2 mg/dL (0.2-1.0); BLOOD UREA NITROGEN 18 mg/dL (7-18); CALCIUM 8.4 mg/dL (8.5-10.1); CO2 24 mmol/L (21-32); CREATININE 0.8 mg/dL (0.55-1.02); GLUCOSE,RANDOM 110 mg/dL (74-106); SGOT/AST 15 U/L (15-37); SGPT/ALT 23 U/L (12-78); TOT PROT 7.2 g/dl (6.4-8.2)
--- NOTE | 2017-10-26 08:32 | PN ---
Teaching Attending Note Name of Resident: Marcus Knight ATTENDING PHYSICIAN STATEMENT I saw and evaluated the patient. I reviewed the resident's note and discussed the case with the resident. I agree with the resident's findings and plan as documented with exceptions below. SUBJECTIVE: Patient seen and examined. right hand redness improved, still with swelling and some limitation in ROM. no fevers,chills. OBJECTIVE: Vital Signs Period Temp Pulse Resp BP Sys/Ang Pulse Ox Last 24 Hr 97.8 F-98.4 F 68-89 17-18 126-190/77-89 98-98 Intake & Output 10/23/17 10/24/17 10/25/17 10/26/17 23:59 23:59 23:59 23:59 Intake Total 50 Balance 50 Weight 190 lb 215 lb 4 oz General: siting in bed in no acute distress Extremities: right hand swelling, ROM almost full, mild limitation from swelling at the palm, no pain on passive movements of right finger, positive pulses Home Medications Medication Instructions Recorded Levothyroxine [Synthroid -] 125 mcg PO DAILY 07/21/16 Albuterol Sulfate Inhaler - 1 - 2 inh PO Q4H PRN #1 inhaler 07/23/16 [Ventolin HFA Inhaler -] Ferrous Sulfate [Feosol] 325 mg PO BID #60 tablet 10/22/17 Active Medications Acetaminophen (Tylenol -) 650 mg PO Q4H PRN PRN Reason: PAIN Last Admin: 10/26/17 08:21 Dose: 650 mg Albuterol/Ipratropium (Duoneb -) 1 amp NEB Q6H PRN PRN Reason: SHORT OF BREATH/WHEEZING Enoxaparin Sodium (Lovenox -) 40 mg SQ DAILY MARKO Ferrous Sulfate (Feosol -) 325 mg PO BID [facility] Last Admin: 10/25/17 22:46 Dose: Not Given Hydrochlorothiazide (Hctz -) 12.5 mg PO DAILY MARKO Last Admin: 10/25/17 21:27 Dose: 12.5 mg Clindamycin Phosphate (Cleocin 600 Mg Premix Ivpb -) 600 mg in 50 mls @ 100 mls /hr IVPB Q8H-IV MARKO; Protocol Last Admin: 10/26/17 03:28 Dose: 100 mls/hr Levothyroxine Sodium (Synthroid -) 125 mcg PO DAILY@0700 MARKO Last Admin: 10/26/17 06:50 Dose: 125 mcg Lisinopril (Prinivil) 10 mg PO BID [facility] Last Admin: 10/25/17 22:47 Dose: Not Given Nicotine (Nicoderm Patch -) 14 mg TD DAILY [facility] Last Admin: 10/25/17 21:28 Dose: 14 mg Abnormal Lab Results 10/25/17 10/25/17 10/26/17 16:51 16:51 06:20 RBC 3.48 L 3.25 L Hgb 10.3 L 9.8 L Hct 32.1 L 29.6 L MPV 7.4 L 7.3 L Eosinophils % 7.5 H 6.7 H Anion Gap 7 L Random Glucose 142 H Calcium 10/26/17 06:20 RBC Hgb Hct MPV Eosinophils % Anion Gap Random Glucose 110 H Calcium 8.4 L ASSESSMENT AND PLAN: 57 yof with PMhx of COPD, hypothyroidism, Iron deficiency anemia, recently admitted for hematochezia, sent after 1 unit PRBC comes with right hand cellulitis at prior IV site. -Right hand cellulitis prior IV site -Hypothyroidism -COPD -Iron deficiency -Recent GI bleed -Newly diagnosed HTN Plan: Clindamycin day 1, Right hand xray/duplex neg. Hand surgery consult Dr. Ballard appreciated. Hand elevation and abx, outpatient follow up for intra-articular steroid inj. Patient refuses need for BP meds. States is high in the hospital. Discussed could be a component of white coat hypertension. Will monitor off meds for now and readdress accordingly. Continue levothyroxine/iron suppl. dVTPPX declines lovenox, explained risks of bleed, advised to ambulate as able. Dispo planning in 24 hours if continues to improve.
[2017-10-26] MEDS ORDERED: PT OWN MED DRAWER 7, Y5N ONE (09:52)
[2017-10-26] MEDS: FERROUS SO4 325 MG TABLET (FP) PO SCH ×2 (09:55→21:54)
[2017-10-26] MEDS: HYDROCHLOROTHIAZIDE 12.5 MG CAPSULE (FP) PO SCH ×2 (09:55→10:13)
[2017-10-26] MEDS: ENOXAPARIN NA (PORCINE) 40 MG/0.4 ML DISP.SYRIN SQ SCH ×2 (09:56→10:14)
[2017-10-26] MEDS ORDERED: LISINOPRIL 10 MG TABLET (FP) PO SCH (10:00)
[2017-10-26] MEDS: NICOTINE 14 MG/24 HOURS TOPICAL PATCH TD SCH (10:03)
--- NOTE | 2017-10-26 10:16 | CONSULT ---
Consult Consult Specialty:: Hand and Microsurgery Referred by:: Issa Palma MD Reason for Consultation:: Hand cellulitis - History of Present Illness Chief Complaint: Right hand pain and swelling History of Present Illness: 57 yo RHD female PMH hypothyroidism, COPD, and BIJU who presents with right hand swelling. She reports that her pain and swelling in the right hand started at the site of and intravenous site which was removed during a previous hospitalization. It was hot and tender to touch, and was mildly relieved with tylenol and ice packs. The swelling, erythema, and tenderness increased this morning prompting her to come to the hospital. Of note, pt was recently discharged from [facility] for a GI bleed likely 06/24 ibuprofen use for back pain. While in the hospital, she received 1 unit of PRBCs, and the IV site was placed in her hand. She was discharged on 10/22 and told to f/u with her GI as an outpatient for an EGD and colonoscopy. She believed that she had dequarvains tendonitis of the right thumb, previously wore a brace on then right. She give no history of arthritis. but does report a history of right thumb joint pain that was intial reason for taking high dose NSAIDs, that may have contributed to her GI bleed. - History Source History Provided By: Patient, Medical Record Limitations to Obtaining History: No Limitations - Past Medical History Pulmonary: Yes: COPD Heme/Onc: Yes: Anemia - Alcohol/Substance Use Hx Alcohol Use: No - Smoking History Smoking history: Current every day smoker Have you smoked in the past 12 months: Yes Aproximately how many cigarettes per day: 20 Home Medications - Allergies Allergies/Adverse Reactions: Allergies Allergy/AdvReac Type Severity Reaction Status Date / Time No Known Allergies Allergy Verified 10/25/17 16:28 - Home Medications Home Medications: Ambulatory Orders Levothyroxine [Synthroid -] 125 mcg PO DAILY 07/21/16 Albuterol Sulfate Inhaler - [Ventolin HFA Inhaler -] 1 - 2 inh PO Q4H PRN #1 inhaler 07/23/16 Ferrous Sulfate [Feosol] 325 mg PO BID #60 tablet 10/22/17 Hydroxyzine HCl 25 mg PO DAILY 10/26/17 Family Disease History - Family Disease History Family Disease History: Heart Disease: Father (CHF), CA: Mother (LUNG CA), Other : Father, Mother, Brother (DRUG/ ALCOHOL ABUSE) Review of Systems - Review of Systems Constitutional: denies: Chills, Fever Eyes: denies: Blurred Vision, Recent Change in Vision HENT: denies: Difficult Swallowing, Throat Pain Neck: denies: Pain on Movement, Swollen Glands Respiratory: denies: Cough, SOB Gastrointestinal: denies: Constipation, Diarrhea Genitourinary: denies: Discharge, Dysuria Breasts: reports: No Symptoms Reported. denies: Pain Musculoskeletal: reports: Extremity Pain, Joint Pain, Joint Swelling Integumentary: denies: Lesions, Rash Neurological: denies: Seizure, Syncope Endocrine: denies: Unexplained Weight Gain, Unexplained Weight Loss Hematology/Lymphatic: denies: Easily Bruised, Excessive Bleeding Psychiatric: denies: Anxiety, Depression Physical Exam Vital Signs: Vital Signs Temperature 97.8 F 10/26/17 03:49 Pulse Rate 68 10/26/17 03:49 Respiratory Rate 18 10/26/17 03:49 Blood Pressure 153/79 10/26/17 03:49 O2 Sat by Pulse Oximetry (%) 98 10/26/17 03:37 Vital Signs Period Temp Pulse Resp BP Sys/Ang Pulse Ox Last 24 Hr 97.8 F-98.4 F 68-89 17-18 126-190/77-89 98-98 Constitutional: Yes: No Distress, Calm, Obese Eyes: Yes: Conjunctiva Clear, EOM Intact HENT: Yes: Atraumatic, Normocephalic Neck: Yes: Supple, Trachea Midline Cardiovascular: Yes: Regular Rate and Rhythm, S1, S2 Respiratory: Yes: Regular, CTA Bilaterally Gastrointestinal: Yes: Normal Bowel Sounds, Soft, Abdomen, Obese. No: Tenderness ...Rectal Exam: Yes: Deferred Renal/: No: CVA Tenderness - Left, CVA Tenderness - Right Musculoskeletal: Yes: Other (right hand dorsal first webspace, duiffuse dorsal swelling, minimal erythema, no fluctuance) Extremities: No: Cold, Cool Integumentary: No: Jaundice, Rash Wound/Incision: Yes: Clean/Dry, Well Approximated Neurological: Yes: Alert, Oriented Psychiatric: Yes: Alert, Oriented Labs: CBC, BMP 10/26/17 06:20 10/26/17 06:20 Imaging - Results X-ray: Report Reviewed, Image Reviewed (no acute fracture or foreign body, right hand basal joint OA moderate lagre osteophytes and partial subluxation of the joint.) Ultrasound: Report Reviewed, Image Reviewed (RUU no acute DVT) Problem List - Problems (1) Cellulitis of right hand Assessment/Plan: 57 yo RHD female PMH COPD, BIJU, hypothyroid with right hand cellulitis dorsal thumb web space after IV line during last hospitalization RUE elevation above heart level while in in bed Physical Therapy for ROM and edema empiric IV antibiotics clinic f/u for right thumb basal joint steroid injection will follow Thank you for the opportunity to participate in the care of this patient. Code(s): L03.113 - CELLULITIS OF RIGHT UPPER LIMB (2) COPD (chronic obstructive pulmonary disease) Code(s): J44.9 - CHRONIC OBSTRUCTIVE PULMONARY DISEASE, UNSPECIFIED Qualifiers: Emphysema type: unspecified (3) Iron deficiency anemia Code(s): D50.9 - IRON DEFICIENCY ANEMIA, UNSPECIFIED (4) Hypothyroidism Code(s): E03.9 - HYPOTHYROIDISM, UNSPECIFIED (5) Nicotine dependence Code(s): F17.200 - NICOTINE DEPENDENCE, UNSPECIFIED, UNCOMPLICATED Qualifiers: Nicotine product type: cigarettes Substance use status: uncomplicated Qualified Code(s): F17.210 - Nicotine dependence, cigarettes, uncomplicated
--- NOTE | 2017-10-26 11:46 | EKG ---
Test Reason : Blood Pressure : / mmHG Vent. Rate : 068 BPM Atrial Rate : 068 BPM P-R Int : 160 ms QRS Dur : 094 ms QT Int : 412 ms P-R-T Axes : 050 014 063 degrees QTc Int : 438 ms NORMAL SINUS RHYTHM POSSIBLE LEFT ATRIAL ENLARGEMENT NONSPECIFIC T WAVE ABNORMALITY ABNORMAL ECG WHEN COMPARED WITH ECG OF 21-OCT-2017 15:33, NO SIGNIFICANT CHANGE WAS FOUND Confirmed by NEGIN WOODS, DARCI ([id number]) on 10/26/2017 11:46:08 AM Referred By: Confirmed By:DARCI KAM MD
--- NOTE | 2017-10-26 14:13 | PN ---
Physical Exam: SUBJECTIVE: Patient seen and examined at bedside. No acute events. Pt complains of R hand swelling. States redness has decreased since yest. OBJECTIVE: Vital Signs Period Temp Pulse Resp BP Sys/Ang Pulse Ox Last 24 Hr 97.8 F-98.4 F 68-89 17-18 126-190/77-89 98-98 PHYSICAL EXAM Gen: NAD HEENT: NCAT, PERRLA, EOMI Neck: supple, no JVD Cardiac: RRR, normal s1s2, no m/r/g Pulm: diffuse wheezing. chronic problem abd: soft, nontender, nondistended, no guarding, no organomegally Ext: R hand swollen to approximately 1 inch above the wrist. No erythema. Neurovascularly intact. Full ROM preserved in the fingers. Pt has some pain on full extension of fingers due to swelling. Laboratory Results - last 24 hr 10/25/17 10/25/17 10/25/17 16:51 16:51 19:10 WBC 8.5 RBC 3.48 L Hgb 10.3 L Hct 32.1 L MCV 92.3 MCH 29.6 MCHC 32.1 RDW 15.2 Plt Count 372 MPV 7.4 L Absolute Neuts (auto) 5.3 Neutrophils % 62.8 Lymphocytes % 22.4 Monocytes % 6.4 Eosinophils % 7.5 H Basophils % 0.9 Nucleated RBC % 0 Sodium 137 Potassium 4.3 Chloride 104 Carbon Dioxide 26 Anion Gap 7 L BUN 18 Creatinine 0.9 Creat Clearance w eGFR > 60 POC Glucometer Random Glucose 142 H Lactic Acid 1.2 Calcium 8.6 Total Bilirubin 0.2 D AST 16 ALT 27 Alkaline Phosphatase 95 Total Protein 7.7 Albumin 3.9 10/25/17 10/26/17 10/26/17 22:08 06:20 06:20 WBC 8.1 RBC 3.25 L Hgb 9.8 L Hct 29.6 L MCV 91.2 MCH 30.3 MCHC 33.2 RDW 15.3 Plt Count 324 MPV 7.3 L Absolute Neuts (auto) 4.8 Neutrophils % 58.7 Lymphocytes % 24.7 Monocytes % 9.3 Eosinophils % 6.7 H Basophils % 0.6 Nucleated RBC % 0 Sodium 138 Potassium 4.0 Chloride 104 Carbon Dioxide 24 Anion Gap 10 BUN 18 Creatinine 0.8 Creat Clearance w eGFR > 60 POC Glucometer [id number] Random Glucose 110 H Lactic Acid Calcium 8.4 L Total Bilirubin 0.2 AST 15 ALT 23 Alkaline Phosphatase 91 Total Protein 7.2 Albumin 3.7 Active Medications Generic Name Dose Route Start Last Admin Trade Name Sheila PRN Reason Stop Dose Admin Acetaminophen 650 mg 10/25/17 20:23 10/26/17 08:21 Tylenol - PO 650 mg Q4H PRN Administration PAIN Albuterol/Ipratropium 1 amp 10/25/17 20:33 Duoneb - NEB Q6H PRN SHORT OF BREATH/WHEEZING Ferrous Sulfate 325 mg 10/25/17 22:00 10/26/17 09:55 Feosol - PO 325 mg BID MARKO Administration Clindamycin Phosphate 600 mg in 50 mls @ 100 mls/hr 10/26/17 02:00 10/26/17 09:54 Cleocin 600 Mg Premix Ivpb - IVPB 100 mls/hr Q8H-IV MARKO Administration Protocol Levothyroxine Sodium 125 mcg 10/26/17 07:00 10/26/17 06:50 Synthroid - PO 125 mcg DAILY@0700 MARKO Administration Nicotine 14 mg 10/25/17 20:45 10/26/17 10:03 Nicoderm Patch - TD Not Given DAILY MARKO ASSESSMENT/PLAN: Pt is a 57 y/o F with PMH Fe defic anemia, opioid dependence, nicotine dependence, COPD, hypothyroid who presented to ED with R hand pain, swelling, and erythema beginning several days after receiving a blood transfusion via an iv at the same site. Pt is admitted for cellulitis. #Cellulitis -R hand swollen, tender -afebrile, no leukocytosis -Clindamycin -Hand surg consult (Dr. Ballard), recs appreciated: hand elevation, PT, IV Abx, and f/u in clinic. #Fe defic anemia -recent PRBC given at this facility -stable #COPD -chronic and stable -Duonebs #Hypothyroid -synthroid #Nicotine dependence -counselled extensively -pt expresses desire to quit smoking this visit -refusing nicotine patch as she has trouble sleeping with them #PPx -pt not on dvt ppx. Refusing lovenox. Pt is ambulatory and was encouraged to walk frequently. Pt verbalized understanding and agreement. #FEN -Not on fluids -lytes wnl -Na controlled diet #Dispo -admitted for cellulitis Marcus Knight MD PGY-1 IM Visit type - Emergency Visit Emergency Visit: No - New Patient This patient is new to me today: No - Critical Care Critical Care patient: No - Discharge Referral Referred to [facility] No
[2017-10-26 20:40] LABS: URINE APPEARANCE SLCLOUDY; URINE BILIRUBIN NEGATIVE (<2.0 mg/dL); URINE BLOOD NEGATIVE (NEGATIVE); URINE COLOR YELLOW; URINE GLUCOSE (UA) NEGATIVE (NEGATIVE); URINE KETONE TRACE (NEGATIVE); URINE LEUK ESTERASE NEGATIVE (NEGATIVE); URINE NITRITE NEGATIVE (NEGATIVE); URINE UROBILINOGEN NEGATIVE mg/dL (0.2-1.0)
[2017-10-26 20:41] LABS: URINE PROTEIN 1+ (NEGATIVE)
[2017-10-26 20:47] LABS: EPI CELLS RARE /HPF (FEW); URINE BACTERIA RARE /hpf (NONE SEEN); URINE MUCUS RARE
[2017-10-27] MEDS: CLINDAMYCIN 600MG PREMIX IVPB 600 MG/50 ML BAG IVPB SCH ×2 (01:50→09:30)
[2017-10-27] MEDS: LEVOTHYROXINE NA 125 MCG TABLET (FP) PO SCH ×2 (06:12→06:15)
[2017-10-27 07:39] LABS: BASO % 0.6 % (0-2.0); EOS % 6.6 % (0-4.5); HEMATOCRIT 28.6 % (32.4-45.2); HEMOGLOBIN 9.3 GM/dL (10.7-15.3); LYMPH % 23.8 % (8-40); MCHC 32.7 g/dl (32.0-36.0); MEAN CELL VOLUME 91.8 fl (80-96); MEAN PLT VOLUME 7.3 fl (7.5-11.1); MONO % 11.4 % (3.8-10.2); NEUT % 57.6 % (42.8-82.8); PLATELET COUNT 280 K/MM3 (134-434); RBC 3.11 M/mm3 (3.60-5.2); RDW 15.8 % (11.6-15.6); WHITE BLOOD COUNT 5.9 K/mm3 (4.0-10.0)
--- NOTE | 2017-10-27 07:39 | PN ---
Physical Exam: SUBJECTIVE: Patient seen and examined at bedside. Pt states hand swelling is improving since yesterday. Feels better, though not resolved, yet. OBJECTIVE: Vital Signs Period Temp Pulse Resp BP Sys/Ang Pulse Ox Last 24 Hr 97.7 F-98.4 F 59-64 18-20 128-146/63-91 93-98 Gen: NAD HEENT: NCAT, PERRLA, EOMI Neck: supple, no JVD Cardiac: RRR, normal s1s2, no m/r/g Pulm: diffuse wheezing. chronic problem abd: soft, nontender, nondistended, no guarding, no organomegally Ext: R hand swollen. Reduced since yesterday. No erythema. Neurovascularly intact. Full ROM preserved in the fingers. Pt has some pain on full extension of fingers due to swelling. Laboratory Results - last 24 hr 10/26/17 10/26/17 10/26/17 06:20 06:20 20:00 WBC 8.1 RBC 3.25 L Hgb 9.8 L Hct 29.6 L MCV 91.2 MCH 30.3 MCHC 33.2 RDW 15.3 Plt Count 324 MPV 7.3 L Absolute Neuts (auto) 4.8 Neutrophils % 58.7 Lymphocytes % 24.7 Monocytes % 9.3 Eosinophils % 6.7 H Basophils % 0.6 Nucleated RBC % 0 Sodium 138 Potassium 4.0 Chloride 104 Carbon Dioxide 24 Anion Gap 10 BUN 18 Creatinine 0.8 Creat Clearance w eGFR > 60 Random Glucose 110 H Calcium 8.4 L Total Bilirubin 0.2 AST 15 ALT 23 Alkaline Phosphatase 91 Total Protein 7.2 Albumin 3.7 Urine Color Yellow Urine Appearance Slcloudy Urine pH 5.0 Ur Specific Staples 1.030 Urine Protein 1+ H Urine Glucose (UA) Negative Urine Ketones Trace H Urine Blood Negative Urine Nitrite Negative Urine Bilirubin Negative Urine Urobilinogen Negative Ur Leukocyte Esterase Negative Urine WBC (Auto) 1 Urine RBC (Auto) 6 Ur Epithelial Cells Rare Urine Bacteria Rare Urine Mucus Rare Active Medications Generic Name Dose Route Start Last Admin Trade Name Freq PRN Reason Stop Dose Admin Acetaminophen 650 mg 10/25/17 20:23 10/26/17 17:30 Tylenol - PO 650 mg Q4H PRN Administration PAIN Albuterol/Ipratropium 1 amp 10/25/17 20:33 Duoneb - NEB Q6H PRN SHORT OF BREATH/WHEEZING Ferrous Sulfate 325 mg 10/25/17 22:00 10/26/17 21:54 Feosol - PO 325 mg BID MARKO Administration Clindamycin Phosphate 600 mg in 50 mls @ 100 mls/hr 10/26/17 02:00 10/27/17 01:50 Cleocin 600 Mg Premix Ivpb - IVPB 100 mls/hr Q8H-IV MARKO Administration Protocol Levothyroxine Sodium 125 mcg 10/26/17 07:00 10/27/17 06:15 Synthroid - PO Not Given DAILY@0700 MARKO Nicotine 14 mg 10/25/17 20:45 10/26/17 10:03 Nicoderm Patch - TD Not Given DAILY MARKO ASSESSMENT/PLAN:
[2017-10-27 08:07] LABS: CHLORIDE 106 mmol/L (98-107); POTASSIUM 4.3 mmol/L (3.5-5.1); SODIUM 140 mmol/L (136-145)
[2017-10-27 08:12] LABS: ANION GAP 9 (8-16); BLOOD UREA NITROGEN 14 mg/dL (7-18); CALCIUM 8.4 mg/dL (8.5-10.1); CO2 25 mmol/L (21-32); CREATININE 0.7 mg/dL (0.55-1.02); GLUCOSE,RANDOM 98 mg/dL (74-106)
--- NOTE | 2017-10-27 08:43 | PN ---
Teaching Attending Note Name of Resident: Marcus Knight ATTENDING PHYSICIAN STATEMENT I saw and evaluated the patient. I reviewed the resident's note and discussed the case with the resident. I agree with the resident's findings and plan as documented with exceptions below. SUBJECTIVE: Patient seen and examined. right hand symptoms improving, no new fevers/chills or concerns. OBJECTIVE: Vital Signs Period Temp Pulse Resp BP Sys/Ang Pulse Ox Last 24 Hr 97.7 F-98.4 F 59-64 18-20 130-146/63-91 93-98 Intake & Output 10/24/17 10/25/17 10/26/17 10/27/17 23:59 23:59 23:59 23:59 Intake Total 615 70 Balance 615 70 Weight 190 lb 215 lb 4 oz General: ambulating in room, no acute distress Extremities: right hand erythema resolved, swelling improved, improved ROM the fingers and palm Home Medications Medication Instructions Recorded Levothyroxine [Synthroid -] 125 mcg PO DAILY 07/21/16 Albuterol Sulfate Inhaler - 1 - 2 inh PO Q4H PRN #1 inhaler 07/23/16 [Ventolin HFA Inhaler -] Ferrous Sulfate [Feosol] 325 mg PO BID #60 tablet 10/22/17 Hydroxyzine HCl 25 mg PO DAILY 10/26/17 Active Medications Acetaminophen (Tylenol -) 650 mg PO Q4H PRN PRN Reason: PAIN Last Admin: 10/26/17 17:30 Dose: 650 mg Albuterol/Ipratropium (Duoneb -) 1 amp NEB Q6H PRN PRN Reason: SHORT OF BREATH/WHEEZING Ferrous Sulfate (Feosol -) 325 mg PO BID MARKO Last Admin: 10/26/17 21:54 Dose: 325 mg Clindamycin Phosphate (Cleocin 600 Mg Premix Ivpb -) 600 mg in 50 mls @ 100 mls /hr IVPB Q8H-IV MARKO; Protocol Last Admin: 10/27/17 01:50 Dose: 100 mls/hr Levothyroxine Sodium (Synthroid -) 125 mcg PO DAILY@0700 MARKO Last Admin: 10/27/17 06:15 Dose: Not Given Nicotine (Nicoderm Patch -) 14 mg TD DAILY [facility] Last Admin: 10/26/17 10:03 Dose: Not Given Microbiology 10/25/17 16:51 Blood - Peripheral Venous Blood Culture - Preliminary NO GROWTH OBTAINED AFTER 24 HOURS, INCUBATION TO CONTINUE FOR 4 DAYS. 10/25/17 16:51 Blood - Peripheral Venous Blood Culture - Preliminary NO GROWTH OBTAINED AFTER 24 HOURS, INCUBATION TO CONTINUE FOR 4 DAYS. Abnormal Lab Results 10/26/17 10/27/17 10/27/17 20:00 06:00 06:00 RBC 3.11 L Hgb 9.3 L Hct 28.6 L RDW 15.8 H MPV 7.3 L Monocytes % 11.4 H Eosinophils % 6.6 H Calcium 8.4 L Urine Protein 1+ H Urine Ketones Trace H ASSESSMENT AND PLAN: 57 yof with PMhx of COPD, hypothyroidism, Iron deficiency anemia, recently admitted for hematochezia, sent after 1 unit PRBC comes with right hand cellulitis at prior IV site. -Right hand cellulitis prior IV site -Hypothyroidism -COPD -Iron deficiency -Recent GI bleed -Newly diagnosed HTN Plan: Clindamycin day 2, Right hand xray/duplex neg. symptoms continue to improve, no new fevers or leucocytosis. Change to po clindamycin 450 mg q8h for a total of 10 day course. Right hand elevation. Outpatient follow up with Dr. Ballard. Patient counseled on home BP monitoring. Continue levothyroxine/iron suppl. d/c home today plan discussed with patient in detail, all questions answered.
[2017-10-27] MEDS: NICOTINE 14 MG/24 HOURS TOPICAL PATCH TD SCH (09:30)
[2017-10-27] MEDS: FERROUS SO4 325 MG TABLET (FP) PO SCH (09:30)
[2017-10-27 09:42] VITALS: BP 142/71; PULSE 55; TEMP 97.7
[2017-10-27] MEDS: ACETAMINOPHEN 325 MG TABLET (FP) PO PRN (10:54)
--- NOTE | 2017-10-27 11:42 | PN ---
Progress Note, Physician Chief Complaint: right hand swelling History of Present Illness: 57 yo RHD female PMH hypothyroidism, COPD, and BIJU who presents with right hand swelling. She reports that her pain and swelling in the right hand started at the site of and intravenous site which was removed during a previous hospitalization. Sight improvement since yesterday - Current Medication List Current Medications: Active Medications Acetaminophen (Tylenol -) 650 mg PO Q4H PRN PRN Reason: PAIN Last Admin: 10/27/17 10:54 Dose: 650 mg Albuterol/Ipratropium (Duoneb -) 1 amp NEB Q6H PRN PRN Reason: SHORT OF BREATH/WHEEZING Ferrous Sulfate (Feosol -) 325 mg PO BID MARKO Last Admin: 10/27/17 09:30 Dose: 325 mg Clindamycin Phosphate (Cleocin 600 Mg Premix Ivpb -) 600 mg in 50 mls @ 100 mls /hr IVPB Q8H-IV MARKO; Protocol Last Admin: 10/27/17 09:30 Dose: 100 mls/hr Levothyroxine Sodium (Synthroid -) 125 mcg PO DAILY@0700 MARKO Last Admin: 10/27/17 06:15 Dose: Not Given Nicotine (Nicoderm Patch -) 14 mg TD DAILY MARKO Last Admin: 10/27/17 09:30 Dose: Not Given - Objective Vital Signs: Vital Signs Temperature 97.7 F 10/27/17 09:41 Pulse Rate 55 L 10/27/17 09:41 Respiratory Rate 20 10/27/17 09:41 Blood Pressure 142/71 10/27/17 09:41 O2 Sat by Pulse Oximetry (%) 95 10/27/17 09:00 Vital Signs Period Temp Pulse Resp BP Sys/Ang Pulse Ox Last 24 Hr 97.7 F-98.4 F 55-64 18-20 130-146/63-91 93-95 Constitutional: Yes: No Distress, Calm, Obese Eyes: Yes: Conjunctiva Clear, EOM Intact HENT: Yes: Atraumatic, Normocephalic Neck: Yes: Supple, Trachea Midline Cardiovascular: Yes: Regular Rate and Rhythm, S1, S2 Respiratory: Yes: Regular, CTA Bilaterally Gastrointestinal: Yes: Normal Bowel Sounds, Soft. No: Tenderness ...Rectal Exam: Yes: Deferred Genitourinary: No: CVA Tenderness - Left, CVA Tenderness - Right Extremities: No: Cool, Cyanosis Edema: No Neurological: Yes: Alert, Oriented Psychiatric: Yes: Alert, Oriented Labs: CBC, BMP 10/27/17 06:00 10/27/17 06:00 Microbiology 10/25/17 16:51 Blood - Peripheral Venous Blood Culture - Preliminary NO GROWTH OBTAINED AFTER 24 HOURS, INCUBATION TO CONTINUE FOR 4 DAYS. 10/25/17 16:51 Blood - Peripheral Venous Blood Culture - Preliminary NO GROWTH OBTAINED AFTER 24 HOURS, INCUBATION TO CONTINUE FOR 4 DAYS. Problem List - Problems (1) Cellulitis of right hand Code(s): L03.113 - CELLULITIS OF RIGHT UPPER LIMB (2) COPD (chronic obstructive pulmonary disease) Code(s): J44.9 - CHRONIC OBSTRUCTIVE PULMONARY DISEASE, UNSPECIFIED Qualifiers: Emphysema type: unspecified (3) Iron deficiency anemia Code(s): D50.9 - IRON DEFICIENCY ANEMIA, UNSPECIFIED (4) Hypothyroidism Code(s): E03.9 - HYPOTHYROIDISM, UNSPECIFIED (5) Nicotine dependence Code(s): F17.200 - NICOTINE DEPENDENCE, UNSPECIFIED, UNCOMPLICATED Qualifiers: Nicotine product type: cigarettes Substance use status: uncomplicated Qualified Code(s): F17.210 - Nicotine dependence, cigarettes, uncomplicated
--- NOTE | 2017-10-27 13:16 | DS ---
Physical Exam: SUBJECTIVE: Patient seen and examined at bedside. Pt states hand swelling is improving since yesterday. Feels better, though not altogether resolved yet. OBJECTIVE: Vital Signs Period Temp Pulse Resp BP Sys/Ang Pulse Ox Last 24 Hr 97.7 F-98.4 F 55-64 18-20 131-146/63-91 93-95 PHYSICAL EXAM Gen: NAD HEENT: NCAT, PERRLA, EOMI Neck: supple, no JVD Cardiac: RRR, normal s1s2, no m/r/g Pulm: diffuse wheezing. chronic problem abd: soft, nontender, nondistended, no guarding, no organomegally Ext: R hand swollen. Reduced since yesterday. No erythema. Neurovascularly intact. Full ROM preserved in the fingers. Pt has some pain on full extension of fingers due to swelling. LABS Laboratory Results - last 24 hr 10/26/17 10/27/17 10/27/17 20:00 06:00 06:00 WBC 5.9 RBC 3.11 L Hgb 9.3 L Hct 28.6 L MCV 91.8 MCH 30.0 MCHC 32.7 RDW 15.8 H Plt Count 280 MPV 7.3 L Absolute Neuts (auto) 3.4 Neutrophils % 57.6 Lymphocytes % 23.8 Monocytes % 11.4 H Eosinophils % 6.6 H Basophils % 0.6 Nucleated RBC % 0 Sodium 140 Potassium 4.3 Chloride 106 Carbon Dioxide 25 Anion Gap 9 BUN 14 Creatinine 0.7 Random Glucose 98 Calcium 8.4 L Urine Color Yellow Urine Appearance Slcloudy Urine pH 5.0 Ur Specific Malcom 1.030 Urine Protein 1+ H Urine Glucose (UA) Negative Urine Ketones Trace H Urine Blood Negative Urine Nitrite Negative Urine Bilirubin Negative Urine Urobilinogen Negative Ur Leukocyte Esterase Negative Urine WBC (Auto) 1 Urine RBC (Auto) 6 Ur Epithelial Cells Rare Urine Bacteria Rare Urine Mucus Rare HOSPITAL COURSE: Date of Admission:10/25/17 Date of Discharge: 10/27/17 Pt is a 57 y/o F with PMH Fe defic anemia, opioid dependence, nicotine dependence, COPD, hypothyroid who presented to ED with R hand pain, swelling, and erythema beginning several days after receiving a blood transfusion via an iv at the same site. Pt is admitted for cellulitis. Pt presented with R hand swollen, tender. However, she was afebrile and had no leukocytosis. She was treated with Clindamycin. Hand surgery was consulted (Dr. Ballard), recs appreciated: hand elevation, PT, IV Abx, and f/u in clinic. Swelling and discomfort improved on abx. Pt's hx Fe defic anemia was monitored and did not require treatment this visit. Pt's COPD is chronic and stable. She was counselled on cigarette smoking and stated she would quit this hospital visit. Pt was counselled extensively on her nicotine dependence. Pt's hx Hypothyroid was treated with home synthroid. Pt refused lovenox. Pt is ambulatory and was encouraged to walk frequently. Pt verbalized understanding and agreement. Pt is currently in NAD and stable for d/c home with a course of ABx and instructions to follow up with hand surgery. Minutes to complete discharge: 30 Discharge Summary Reason For Visit: CELLULITIS Current Active Problems COPD (chronic obstructive pulmonary disease) (Chronic) Condition: Stable - Instructions Diet, Activity, Other Instructions: You were admitted to the hospital for skin infection of the R hand. You were seen and treated by the medical team and hand surgeon with IV antibiotics. The infection is resolving and you are stable to be discharged on antibiotics by mouth. Please take the medication called clindamycin 450mg (3 capsules) 3 times a day till 11/04 (8 more days) Go to an emergency room if the redness, warmth or swelling comes back or you have fever, chills. Hand Surgeon Follow-up: Call Dr. Ballard' office at [phone] to make your appointment on a Tuesday 2 weeks after discharge. For a brace and injection of steroid. Clinic is held in the [facility] on the first floor of [facility]. Referrals: Gerald Riggins MD [Primary Care Provider] - 1 Week Javy Ballard MD [Staff Physician] - 2 Weeks Disposition: HOME - Home Medications Comprehensive Discharge Medication List: Ambulatory Orders Levothyroxine [Synthroid -] 125 mcg PO DAILY 07/21/16 Albuterol Sulfate Inhaler - [Ventolin HFA Inhaler -] 1 - 2 inh PO Q4H PRN #1 inhaler 07/23/16 Ferrous Sulfate [Feosol] 325 mg PO BID #60 tablet 10/22/17 Hydroxyzine HCl 25 mg PO DAILY 10/26/17 Clindamycin [Cleocin -] 450 mg PO Q8H #78 capsule 10/27/17 This patient is new to me today: No Emergency Visit: No Critical Care patient: No - Discharge Referral Referred to [facility] No
== END 2017-10-27 14:32 | disposition home or self-care (01) | DRG 383 ==
LOC: JER 16:14 → JERBED 20:01 → OBSVTOIN 20:23 → J4S 10-26 03:04 → J7W 10-27 03:17
PROVIDERS: ADMIT Internal Medicine; ATTEND Hospitalist
DX: L03.113 Cellulitis of right upper limb (principal); F11.20 Opioid dependence, uncomplicated; Z68.41 Body mass index [BMI] 40.0-44.9, adult; J44.9 Chronic obstructive pulmonary disease, unspecified; E03.9 Hypothyroidism, unspecified; F17.210 Nicotine dependence, cigarettes, uncomplicated; D50.9 Iron deficiency anemia, unspecified; I10 Essential (primary) hypertension; E66.9 Obesity, unspecified
CPT/HCPCS: 36415; 73130-TC-RT-FY; 80048; 80053; 81003; 81015; 82962; 83605; 85025; 87040; 93005; 93010; 93971; 97124-GP; 97161-GP; 99285-25; G0378